=== PATIENT | female | born 1950 | race Caucasian/White ===

== ENCOUNTER 2023-12-04 10:02 | Outpatient (AMB) | payer MEDICARE, MEDICAID, SELFPAY ==
--- NOTE | 2023-12-04 10:03 | A.OFFVIS_ITS ---
Intake Vital Signs 12/04/23 10:06 Height 5 ft 3 in Weight 152 lb 8 oz BMI 27.0 BP 130/74 Blood Pressure Location Rt brachial Position Sitting Pulse 107 H Pulse Source Pulse Oximeter Pulse Oximetry (%) 95 Oxygen Delivery Method Room Air Intake Visit Reasons: prev pt/Confirmed Allergies Penicillins Allergy (Severe, Verified 12/04/23 10:07) throat swelling HPI HPI Comments History of Present Illness Details I had the privilege of seeing Alexsandra in follow-up of her mild CKD and hypertension. 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 She is due to have a next procedure for it done end of this month. She is not on any home oxygen. Her blood pressure had been at goal. Her serum creatinine has been stable. She denies any chest pain, proximal nocturnal dyspnea, orthopnea, pedal edema, orthostasis or urinary symptoms. She avoids nonsteroidal anti-inflammatories and tries to maintain good hydration. She follows up closely with her primary care phys kathryn. [facility] Medical History (Updated 12/04/23 @ 11:25 by Arvind Ball MD) Hypertensive chronic kidney disease with stage 1 through stage 4 chronic kidney disease, or unspecified chronic kidney disease Chronic kidney disease, stage 2 (mild) Surgical History History of throat surgery Family History Mother Pancreatic cancer Social History Household Members: None Housing: Apartment Alcohol intake: never Patient Tobacco Use Status: Former Tobacco user Current occupational status: retired Review of Systems Const All systems reviewed & are unremarkable except as noted in HPI and below Physical Exam Vital Signs: Last Vital Signs Pulse 107 H 12/04/23 10:06 BP 130/74 12/04/23 10:06 Pulse Ox 95 12/04/23 10:06 Oxygen Delivery Method Room Air 12/04/23 10:06 BMI result Body Mass Index 27.0 Const General: comfortable and no acute distress Orientation/consciousness: patient oriented x3 HEENT Head: Yes normocephalic Mouth: Normal oral and palatal mucosa present Eyes EOM: EOMs intact bilaterally Neck Neck: Yes supple Resp Auscultation: clear to auscultation bilaterally Cardio Jugular venous distension: no JVD Rate: regular rate GI Palpation (GI): Soft to palpation Auscultation: normal bowel sounds General: Yes no CVA tenderness Back/Spine/Pelvis Back: no CVA tenderness Skin General skin exam: no rashes or lesions noted Neuro General: patient oriented x3 and moves all extremities Extrem General: Yes no pedal edema Assessment & Plan Assessment & Plan (1) Hypertensive chronic kidney disease with stage 1 through stage 4 chronic kidney disease, or unspecified chronic kidney disease: Code(s): I12.9 - Hypertensive chronic kidney disease with stage 1 through stage 4 chronic kidney disease, or unspecified chronic kidney disease (2) Chronic kidney disease, stage 2 (mild): Code(s): N18.2 - Chronic kidney disease, stage 2 (mild) Plan Alexsandra has baseline mild CKD. Her renal functions are currently stable .Her blood pressure is currently well controlled. She had been on SMOOTH-inhibitor which was discontinued in the past due to her SMOOTH-inhibitor intolerance. She has no active vascular issues. She should be on a low-sodium diet. She avoids nonsteroidal anti-inflammatories. I did not make any medication changes today. Follow-up lab work ordered. All questions answered. Coding Level of Care Code Est Pt Level 3 (61410) Diagnoses Hypertensive chronic kidney disease with stage 1 through stage 4 chronic kidney disease, or unspecified chronic kidney disease I12.9 Chronic kidney disease, stage 2 (mild) N18.2
[2023-12-04 10:06] VITALS: BP 130/74; PULSE 107; O2SAT 95; BMI 27.0
== END 2023-12-04 10:31 | disposition home or self-care (01) ==
LOC: HO.HKAS 10:02
PROVIDERS: PCP Internal Medicine; Visit Provider Internal Medicine Nephrology
DX: I12.9 Hypertensive chronic kidney disease with stage 1 through stage 4 chronic kidney disease, or unspecified chronic kidney disease (principal); N18.2 Chronic kidney disease, stage 2 (mild)
CPT/HCPCS: 99213

== ENCOUNTER → 2023-12-04 10:02 | Outpatient (BNVA) | payer MEDICARE, MEDICAID, SELFPAY | PROVIDERS: PCP Internal Medicine; Visit Provider Internal Medicine Nephrology | DX: I12.9 Hypertensive chronic kidney disease with stage 1 through stage 4 chronic kidney disease, or unspecified chronic kidney disease (principal); N18.2 Chronic kidney disease, stage 2 (mild) | CPT/HCPCS: 99212 ==

== ENCOUNTER 2024-06-03 10:11 | Outpatient (AMB) | payer MEDICARE, MEDICAID, SELFPAY ==
--- NOTE | 2024-06-03 10:45 | HO.NEPHOV ---
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 She is due to have done twice a year. She is not on any home oxygen. Her blood pressure had been at goal. Her serum creatinine has been stable. She denies any chest pain, proximal nocturnal dyspnea, orthopnea, pedal edema, orthostasis or urinary symptoms. She avoids nonsteroidal anti-inflammatories and tries to maintain good hydration FOR[facility]LY [facility], [facility]1983 Medical History (Updated 12/04/23 @ 11:25 by Arvind Ball MD) Hypertensive chronic kidney disease with stage 1 through stage 4 chronic kidney disease, or unspecified chronic kidney disease Chronic kidney disease, stage 2 (mild) Surgical History History of throat surgery Family History Mother Pancreatic cancer Social History Household Members: None Housing: Apartment Alcohol intake: never Patient Tobacco Use Status: Former Tobacco user Current occupational status: retired Review of Systems Const All systems reviewed & are unremarkable except as noted in HPI and below Physical Exam Vital Signs: Last Vital Signs Pulse 78 06/03/24 10:46 BP 122/60 06/03/24 10:46 Pulse Ox 98 06/03/24 10:46 Oxygen Delivery Method Room Air 06/03/24 10:46 BMI result Body Mass Index 26.9 Const General: comfortable and no acute distress Orientation/consciousness: patient oriented x3 HEENT Head: Yes normocephalic Mouth: Normal oral and palatal mucosa present Eyes EOM: EOMs intact bilaterally Neck Neck: Yes supple Resp Auscultation: clear to auscultation bilaterally Cardio Jugular venous distension: no JVD Rate: regular rate GI Palpation (GI): Soft to palpation Auscultation: normal bowel sounds General: Yes no CVA tenderness Back/Spine/Pelvis Back: no CVA tenderness Skin General skin exam: no rashes or lesions noted Neuro General: patient oriented x3 and moves all extremities Extrem General: Yes no pedal edema Results Reviewed Nephrology Results: No Data to Display Assessment & Plan Assessment & Plan (1) Chronic kidney disease, stage 2 (mild): Code(s): N18.2 - Chronic kidney disease, stage 2 (mild) Category: Medical (2) Hypertensive chronic kidney disease with stage 1 through stage 4 chronic kidney disease, or unspecified chronic kidney disease: Code(s): I12.9 - Hypertensive chronic kidney disease with stage 1 through stage 4 chronic kidney disease, or unspecified chronic kidney disease Category: Medical Plan Alexsandra has baseline mild CKD. Her renal functions are currently stable .Her blood pressure is currently well controlled. She had been on SMOOTH-inhibitor which was discontinued in the past due to her SMOOTH-inhibitor intolerance. She has no active vascular issues. She should be on a low-sodium diet. She avoids nonsteroidal anti-inflammatories. I did not make any medication changes today. Follow-up lab work ordered. All questions answered. Orders: Orders Creatinine Today I12.9 - Hypertensive chronic kidney disease with stage 1 through stage 4 chronic kidney disease, or unspecified chronic kidney disease, N18.2 - Chronic kidney disease, stage 2 (mild) Blood Urea Nitrogen Today I12.9 - Hypertensive chronic kidney disease with stage 1 through stage 4 chronic kidney disease, or unspecified chronic kidney disease, N18.2 - Chronic kidney disease, stage 2 (mild) Electrolytes Today I12.9 - Hypertensive chronic kidney disease with stage 1 through stage 4 chronic kidney disease, or unspecified chronic kidney disease, N18.2 - Chronic kidney disease, stage 2 (mild) Coding Level of Care Code Est Pt Level 4 (90240) Diagnoses Chronic kidney disease, stage 2 (mild) N18.2 Hypertensive chronic kidney disease with stage 1 through stage 4 chronic kidney disease, or unspecified chronic kidney disease I12.9
[2024-06-03 10:46] VITALS: BP 122/60; PULSE 78; O2SAT 98; BMI 26.9
== END 2024-06-03 11:04 | disposition home or self-care (01) ==
PROVIDERS: PCP Internal Medicine; Visit Provider Internal Medicine Nephrology
DX: I12.9 Hypertensive chronic kidney disease with stage 1 through stage 4 chronic kidney disease, or unspecified chronic kidney disease (principal); N18.2 Chronic kidney disease, stage 2 (mild)
CPT/HCPCS: 99214

== ENCOUNTER → 2024-06-03 10:11 | Outpatient (BNVA) | payer MEDICARE, MEDICAID, SELFPAY | PROVIDERS: PCP Internal Medicine; Visit Provider Internal Medicine Nephrology | DX: I12.9 Hypertensive chronic kidney disease with stage 1 through stage 4 chronic kidney disease, or unspecified chronic kidney disease (principal); N18.2 Chronic kidney disease, stage 2 (mild) | CPT/HCPCS: 99212 ==

== ENCOUNTER 2025-01-01 09:12 | Outpatient (AMB) | payer MEDICARE, MEDICAID, SELFPAY ==
--- NOTE | 2025-01-01 09:25 | HO.NEPHOV ---
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 She is due to have done twice a year. She is not on any home oxygen. Her blood pressure had been at goal. Her serum creatinine has been stable. She denies any chest pain, proximal nocturnal dyspnea, orthopnea, pedal edema, orthostasis or urinary symptoms. She avoids nonsteroidal anti-inflammatories and tries to maintain good hydration [facility] Medical History (Updated 12/04/23 @ 11:25 by Arvind Ball MD) Hypertensive chronic kidney disease with stage 1 through stage 4 chronic kidney disease, or unspecified chronic kidney disease Chronic kidney disease, stage 2 (mild) Surgical History History of throat surgery Family History Mother Pancreatic cancer Social History Household Members: None Housing: Apartment Alcohol intake: never Patient Tobacco Use Status: Former Tobacco user Current occupational status: retired Review of Systems Const All systems reviewed & are unremarkable except as noted in HPI and below Physical Exam Vital Signs: Last Vital Signs Pulse 97 01/01/25 09:29 BP 130/60 01/01/25 09:29 Pulse Ox 96 01/01/25 09:29 Oxygen Delivery Method Room Air 01/01/25 09:29 BMI result Body Mass Index 27.0 Const General: comfortable and no acute distress Orientation/consciousness: patient oriented x3 HEENT Head: Yes normocephalic Mouth: Normal oral and palatal mucosa present Eyes EOM: EOMs intact bilaterally Neck Neck: Yes supple Resp Auscultation: clear to auscultation bilaterally Cardio Jugular venous distension: no JVD Rate: regular rate GI Palpation (GI): Soft to palpation Auscultation: normal bowel sounds General: Yes no CVA tenderness Back/Spine/Pelvis Back: no CVA tenderness Skin General skin exam: no rashes or lesions noted Neuro General: patient oriented x3 and moves all extremities Extrem General: Yes no pedal edema Results Reviewed Nephrology Results: No Data to Display Assessment & Plan Assessment & Plan (1) Chronic kidney disease, stage 2 (mild): Code(s): N18.2 - Chronic kidney disease, stage 2 (mild) Category: Medical (2) Hypertensive chronic kidney disease with stage 1 through stage 4 chronic kidney disease, or unspecified chronic kidney disease: Code(s): I12.9 - Hypertensive chronic kidney disease with stage 1 through stage 4 chronic kidney disease, or unspecified chronic kidney disease Category: Medical Plan Alexsandra has baseline mild CKD. Her renal functions are currently stable .Her blood pressure is currently well controlled. She had been on SMOOTH-inhibitor which was discontinued in the past due to her SMOOTH-inhibitor intolerance. She has no active vascular issues. She should be on a low-sodium diet. She avoids nonsteroidal anti-inflammatories. I did not make any medication changes today. Follow-up lab work ordered. All questions answered. Orders: Orders Creatinine 8 Months I12.9 - Hypertensive chronic kidney disease with stage 1 through stage 4 chronic kidney disease, or unspecified chronic kidney disease, N18.2 - Chronic kidney disease, stage 2 (mild) Blood Urea Nitrogen 8 Months I12.9 - Hypertensive chronic kidney disease with stage 1 through stage 4 chronic kidney disease, or unspecified chronic kidney disease, N18.2 - Chronic kidney disease, stage 2 (mild) Electrolytes 8 Months I12.9 - Hypertensive chronic kidney disease with stage 1 through stage 4 chronic kidney disease, or unspecified chronic kidney disease, N18.2 - Chronic kidney disease, stage 2 (mild) Protein Creatinine Ratio, Ur 8 Months I12.9 - Hypertensive chronic kidney disease with stage 1 through stage 4 chronic kidney disease, or unspecified chronic kidney disease, N18.2 - Chronic kidney disease, stage 2 (mild) Coding Level of Care Code Est Pt Level 4 (86896) Diagnoses Chronic kidney disease, stage 2 (mild) N18.2 Hypertensive chronic kidney disease with stage 1 through stage 4 chronic kidney disease, or unspecified chronic kidney disease I12.9
[2025-01-01 09:29] VITALS: BP 130/60; PULSE 97; O2SAT 96; BMI 27.0
--- OUTSIDE RECORDS SUMMARY | 2025-01-01 10:11 | XMS_ITS | Encounter Summary ---
Author Organization [facility] Address [address] [place] [address] Care Team Providers Care Gypsum Roofer Name Role Phone Lizzy Kendrick MD Primary Care Provider Reason for Visit * Auth/Cert Specialty Diagnoses / Procedures Referred By Helga smith Referred To Contact Diagnoses Dysphonia Laryngeal hyperkeratosis Dysphonia [R49.0] Laryngeal hyperkeratosis [J38.7] Procedures CA LARGSC EXC LEVY&/STRPG CORDS/EPIGL MCRSCP/TLSCP MICROLARYNGOSCOPY, WITH VYLO LASER PROCEDURE Referral ID Status Reason Start Date Expiration Date Visits Re quested Visits Authorized [id number] 1 1 Encounter Details Date Type Department Care Team (Late st Contact Info) Description 12/15/2024 10:05 AM EST - 12/15/2024 4:00 PM [facility] Hospital Encounter [facility] Room Services [address] [place] [id number] Enrique Taylor MD [address] [place] [address]- [place] [id number] Dysphonia; Laryngeal hyperkeratosis Discharge Disposition: Home or Self Care Social History Tobacco Use Types Packs/Day Years Used Date Smoking Tobacco: Former Cigarettes Q uit: 02/04/1981 Smokeless Tobacco: Never Alcohol Use Standard Drinks/Week Comments No 0 (1 standard drink = 0.6 oz pur e alcohol) Hunger Vital Sign Answer Date Recorded Within the past 12 months, y ou worried that your food would run out before you got the money to buy more. Never true 02/15/20 21 Within the past 12 months, t he food you bought just didn't last and you didn't have money to get more. Never true 02/14/2021 Comments No Sex and Gender Information Value Date Recorded Sex Assigned at Not on file Legal Sex Female 11:12 AM EST Gender Identity Not on file Sexual Orientation Not on file COVID-19 Exposure Response Date Recorded In the last 10 days, have yo u been in contact with someone who was confirmed or suspected to have Coronavirus/COVID-19? No / Unsure 11/04/2024 8:54 AM EST documented as of this encounter Last Filed Vital Signs Vital Sign Reading Time Taken Comments Blood Pressure 139/73 12/15/2024 3:45 PM EST Pulse 92 12/15/2024 3:45 PM EST Temperature 36.6 ??C (97.8 ??F) 12/15/2024 3:45 PM ES T Respiratory Rate 11 12/15/2024 3:45 PM EST Oxygen Saturation 94% 12/15/2024 3:45 PM EST Inhaled Oxygen Concentration - - Weight 68.6 kg (151 lb 4.8 oz) 12/15/2024 10:10 AM EST Height 160 cm (5' 3 ) 12/15/2024 10:10 AM EST Body Mass Index 26.8 12/15/2024 10:10 AM EST documented in this encounter Medications at Time of Discharge amLODIPine (NORVASC) 10 mg tablet Take 10 mg by mouth daily. cholecalciferol, vitamin D3, 50 mcg (2,000 unit) capsule Take 1 capsule by mouth daily. omeprazole (PriLOSEC) 40 mg capsuleIndication s:Laryngopharynge al reflux TAKE 1 CAPSULE BY MOUTH DAILY 30 TO 60 MINUTES BEFORE A MEAL ON AN EMPTY STOMACH 90 capsule 2 12/08/2024 documented as of this encounter H&P Notes * Enrique Taylor MD - 12/15/2024 11:43 AM EST H&P reviewed. The patient was examined and there are no changes to the H&P. Source Note - ONBASE, SCANNED IMAGE - 11/21/2024 4:03 PM EST documented in this encounter Miscellaneous Notes * Op Note - Enrique Taylor MD - 12/15/2024 12:26 PM EST Date of Procedure: 12/16/2024 Pre-operative Diagnosis: Laryngeal Hyperkeratosis Post-operative Diagnosis: Laryngeal Hyperkeratosis Procedures: Microlaryngoscopy with biopsy, KTP laser Surgeon: Enrique Taylor MD Assistants: Primitivo John MD Anesthesia: General via endotracheal tube Fluids: crystalloid EBL: 20cc Complications: none Findings: Papillomatous hyperplasia; Hyperkeratosis Specimen: 1 frozen section, 5 permanent sections Indications: 74 y.o. year old with dysphonia and recurrent laryngeal hyperkeratosis requiring multiple trips to OR for KTP laser excision of lesions. Patient was offered microlaryngoscopy with VYLO laser ablation of lesions. Patient elected to proceed and informed consent was obtained. Description of Procedure in Detail: The patient was brought to the operating room and laid supine on the operating room table. General anesthesia was induced, and a laser safe endotracheal tube was placed by the anesthesiology providerwithout difficulty. The head of the bed was turned 90 degrees and the patient was draped in the usual fashion. Time-Out was performed confirming patient, procedure and personnel involved. Next a tooth guard was placed to protect the upper dentition. A 4.0 Zeitel laryngoscope was introduced in an atraumatic fashion. The lateral pharyngeal banks were normal without any masses. The epiglottis was normal. Arytenoids and AE folds were normal bilaterally without any swelling or masses. The interarytenoid area was unremarkable. The b/l vocal cords had hyperkeratosis present and subglottis had hyperkeratosis. Using the microscope the lesions in question were visualized. The laryngoscope was suspended. 1:50,000 epinephrine was injected into lesion sites. Laser precautions were then started with all staff in room wearing appropriate eyewear and all exposed skin/eyes covered with wet towels. Using a combination of laser ablation, suction, spatula and platform the lesions were addressed. The first lesion in the subglottic on the left had a frozen spececimen sent with intra-op pathology significant for laryngeal hyperkeratosis. Attention was then directed to the other 4 sites including the b/l vocal folds, false cords and subglottic areas. Hemostasis was ensured. VYLO laser was then used to ablate the surface of the lesion using 10 W pulse with 15ms pulse duration and 2 pulses per second , a total of 502 Joules ws utilized. The laryngoscope was then taken off suspension and removed followed by the tooth guard. There was no damage to the patient's dentition. The patient was then turned over to anesthesia, after which he was extubated and transported to the PACU in stable condition. All counts were correct and Dr. Taylor was present for the entirety of the procedure. Primitivo John MD Date: 12/16/2024 Time: 5:45 PM * Brief Op Note - Primitivo John MD - 12/15/2024 12:26 PM EST MICROLARYNGOSCOPY, WITH VYLO LASER PROCEDURE (B) Procedure Note Procedure: MICROLARYNGOSCOPY, WITH VYLO LASER PROCEDURE CPT(R) Code: 55991 - CA LARGSC EXC LEVY&/STRPG CORDS/EPIGL MCRSCP/TLSCP Indications: Laryngeal Hyperkeratosis Pre-op Diagnosis * Dysphonia [R49.0] * Laryngeal hyperkeratosis [J38.7] Post-op Diagnosis * Dysphonia [R49.0] * Laryngeal hyperkeratosis [J38.7] Surgeon(s): Enrique Taylor MD Riccio, David, MD Anesthesia: General Staff: Elderly Sitter: Nayeli Magallon RN Laser Staff: Asia Sanders RN Scrub Person: Herminia Bennett RN; Martin Emerson RN Procedure Findings Right vocal cord with laryngeal hyperkeratosis, left subglottic hyperkeratosis, left inferior hyperkeratosis 502 Joules 1 frozen 5 permeant Estimated Blood Loss: 20 mL Specimens: Specimens ID Source Type Tests Collected By Collected At Frozen? 1 Larynx Tissue SURGICAL SPECIMEN EXAM Enrique Taylor MD 12/15/24 1236 Yes Description: Left posterior inferior vocal cord 2 Larynx Tissue SURGICAL SPECIMEN EXAM Enrique Taylor MD 12/15/24 1241 No Description: Left posterior inferior vocal cord 3 Larynx Tissue SURGICAL SPECIMEN EXAM Enrique Taylor MD 12/15/24 1245 No Description: Right true vocal cord 4 Larynx Tissue SURGICAL SPECIMEN EXAM Enrique Taylor MD 12/15/24 1319 No Description: Left false vocal cord 5 Larynx Tissue SURGICAL SPECIMEN EXAM Enrique Taylor MD 12/15/24 1338 No Description: posterior commissure 6 Larynx Tissue SURGICAL SPECIMEN EXAM Enrique Taylor MD 12/15/24 1358 No Description: Infraglottic Drains: * No LDAs found * Implants: * No implants in log * Complications: None; patient tolerated the procedure well. Disposition: PACU - hemodynamically stable. Condition: stable Siria Synoptic Reporting Requirements: N/A Attending Attestation: I was present and scrubbed for the entire procedure. Enrique Taylor MD Cosigned by Enrique Taylor MD at 12/16/2024 9:58 AM EST documented in this encounter Plan of Treatment Upcoming Encounters Date Type Department Care Team (Late st Contact Info) Description 03/10/2025 8:30 AM EDT Office Visit [facility] Department of Otolaryngology [address], [place] [id number] Enrique Taylor MD [address] [facility] [address] documented as of this encounter Procedures Procedure Name Priority Date/Time Associated Diagnosis Comments SURGICAL SPECIMEN EXAM Routine 12/15/2024 12:36 PM EST Dysphonia Laryngeal hyperkeratosis CA LARGSC EXC LEVY&/STRPG CORDS/EPIGL MCRSCP/TLSCP 12/15/2024 12:12 PM EST Dysphonia Laryngeal hyperkeratosis documented in this encounter Results * Surgical Specimen Exam (12/15/2024 12:36 PM EST) Case Report Surgical Pathology ?Case: [id number] ? Authorizing Provider: ??Enrique Taylor MD ?Collected: ? 12/15/2024 1236 ? Ordering Location: ? [facility] ? Received: ?12/15/2024 1245 ? Room Services ? Pathologist: ? Ruthy Aguilar MD ? Intraop: ? Ruthy Aguilar MD ? Specimens: ?? A) - Larynx, Left posterior inferior vocal cord ? B) - Larynx, Left posterior inferior vocal cord ? C) - Larynx, Right true vocal cord ? D) - Larynx, Left false vocal cord ? E) - Larynx, Posterior commissure ? F) - Larynx, Infraglottic ? 12/23/2024 4:04 PM EST [facility] Final Diagnosis A. Left posterior inferior vocal cord, biopsy (AFS): - Superficial fragment of squamous mucosa with papillomatous and atypical verrucous hyperplasia; hyper-/parakerat osis (see comment). B. Left posterior inferior vocal cord, biopsy: - Superficial fragments of squamous mucosa with papillomatous and atypical verrucous hyperplasia; marked hyper-/parakerat osis (see comment). C. Right true vocal cord, biopsy: - Superficial fragments of squamous mucosa with papillomatous and atypical verrucous hyperplasia, hyper-/parakerat osis (see comment). D. Left false vocal cord, biopsy: - Superficial fragment of squamous mucosa with atypical verrucous hyperplasia, and hyper-/parakerat osis; suspicious for recurrent verrucous carcinoma (see comment). E. 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 F. 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 12/23/2024 4:04 PM [facility] Comment A-F) The current biopsies with features of atypical verrucous hyperplasia to verrucous carcinoma show histologic similarities to the patient's prior Surgical Pathology material ([id number], [id number] and [id number]) with similar findings. 12/23/2024 4:04 PM [facility] Intraoperative Consultation AFS) Squamous mucosa with papillary hyperplasia, hyper-/parakerat osis. Dr. Aguilar notified the intraoperative diagnosis to Dr. Taylor in OR 11 on 12/15/2024 at 12:57 pm. 12/23/2024 4:04 PM [facility] Gross Description Prosector: CHRISTINA GOMEZ(ASCP). The specimen containers are labeled with the patient's name and date of . A. Received fresh (subsequently placed in formalin) for intraoperative consultation labeled left posterior inferior vocal cord is a 0.4 cm soft, red tissue. The specimen is submitted in toto for intraoperative frozen section diagnosis (See intraoperative consultation report), and the frozen section residue is entirely submitted labeled A1. B. Received in formalin labeled left posterior inferior vocal cord is a 0.3 cm aggregate of soft, pink tissue fragments, which is submitted in toto labeled B1. C. Received in formalin labeled right true vocal cord is a 0.5 cm aggregate of soft, red tissue fragments, which is submitted in toto labeled C1. D. Received in formalin labeled left false vocal cord are 2 portions of gates-white, rubbery tissue measuring 0.3 x 0.1 x 0.1 cm and 0.7 x 0.6 x 0.1 cm, which are submitted in toto labeled D1. E. Received in formalin labeled posterior commissure is a 1.0 cm aggregate of white, rubbery tissue fragments. The largest 2 fragments are bisected, and the specimen is entirely submitted labeled E1. F. Received in formalin labeled infraglottic yeah is a 1.5 x 1.5 x 0.5 cm aggregate of pink-white, rubbery tissue fragments. The largest fragment is bisected and the specimen is entirely submitted labeled F1. 12/23/2024 4:04 PM EST [facility] Embedded Images 4:04 PM EST [facility] Tissue Laryngeal structure / Unknown 12/15/2024 12:36 PM EST 12/15/2024 12:45 PM EST Tissue specimen (specimen) Laryngeal structure / Unknown 12/15/2024 12:41 PM EST 12/15/2024 3:51 PM EST Tissue specimen (specimen) Laryngeal structure / Unknown 12/15/2024 12:45 PM EST 12/15/2024 3:51 PM EST Tissue specimen (specimen) Laryngeal structure / Unknown 12/15/2024 1:19 PM EST 12/15/2024 3:51 PM EST Tissue specimen (specimen) Laryngeal structure / Unknown 12/15/2024 1:38 PM EST 12/15/2024 3:51 PM EST Tissue specimen (specimen) Laryngeal structure / Unknown 12/15/2024 1:58 PM EST 12/15/2024 3:51 PM EST us Enrique Taylor MD LAB PATHOLOGY (NO SOURCE) Final Result [facility] [address] [place] [address], [place] [phone] documented in this encounter Visit Diagnoses Diagnosis Dysphonia Laryngeal hyperkeratosis Other diseases of larynx documented in this encounter Admitting Diagnoses Diagnosis Dysphonia Laryngeal hyperkeratosis Other diseases of larynx documented in this encounter Administered Medications Inactive Administered Medications - up to 3 most recent administrations Medication Order MAR Action Action Date Dose Rate Site 0.9% sodium chloride flush 3 mL 3 mL, intravenous, As needed, Starting on Sun12/15/24 at 1014, Until Sun12/16/24 at 1055, line care, Pre-op acetaminophen (OFIRMEV) injection 1,000 mg 1,000 mg, intravenous, Once, 1 dose, On Sun12/15/24 at 1515, Recovery (only), Consult IV Medication Guidelines for administration information. For lower doses < 1000 mg, remove excess dose from vial and infuse desired dose. Given 12/15/2024 3:00 PM EST 1,000 mg fentaNYL (SUBLIMAZE) injection 50 mcg 50 mcg, intravenous, Every 5 min PRN, 2 doses, Starting on Sun12/15/24 at 1452, Until Sun12/15/24 at 1510, severe pain (8-10), Recovery (only), May give up to 2 doses. Maximum dose: 100 mcg in 20 minutes. High Alert Given 12/15/2024 3:10 PM EST 50 mcg Given 12/15/2024 3:05 PM EST 50 mcg haloperidol lactate (HALDOL) injection 0.5 mg 0.5 mg, intravenous, Once as needed, 1 dose, Starting on Sun12/15/24 at 1452, Until Sun12/16/24 at 1055, nausea, vomiting, post-operative nausea/vomiting persists 20 min after last dose of ondansetron, Recovery (only), Oral or IM is preferred. Immediate acting haloperidol lactate can be administered IV or IM although vial states ? For IM administration only? . lactated ringer's infusion 75 mL/hr, intravenous, Continuous, Starting on Sun12/15/24 at 1500, Recovery (only) lactated ringer's infusion 75 mL/hr, intravenous, Continuous, Starting on Sun12/15/24 at 1015, For 24 hours, Pre-op New Bag 12/15/2024 12:12 PM ES T naloxone (NARCAN) injection 0.04 mg 0.04 mg, intravenous, Administer over 0.25 Minutes, Every 2 min PRN, opioid reversal, Starting on Sun12/15/24 at 1452, Recovery (only), Partial Reversal (difficult to arouse, sedation score = or less than 1, RR < 8. May repeat every 2 minutes until sedation greater than 1 and RR greater than 8, notify provider stop all opioids). For 0.04 mg dose: mix 1 mL naloxone with 9 mL NS for 0.04 mg/mL. Dose of 0.04 mg is given over 15-30 seconds and flushed with 5 mL NS. naloxone (NARCAN) injection 0.4 mg 0.4 mg, intravenous, Administer over 0.25 Minutes, As needed, opioid reversal, Starting on Sun12/15/24 at 1452, For 1 dose, Recovery (only), Full Reversal (unresponsive, HR less than 30, RR less than 8, call code blue/MOLDER, notify provider, stop all opioids). ondansetron (ZOFRAN) injection 4 mg 4 mg, intravenous, Once as needed, 1 dose, Starting on Sun12/15/24 at 1452, Until Sun12/16/24 at 1055, nausea, vomiting, Recovery (only), For doses < 12 mg, dilute with 5 mL NS and administer IV push. oxyCODONE (ROXICODONE) immediate release tablet 5 mg 5 mg, oral, Once as needed, Starting on Sun12/15/24 at 1452, Until Sun12/16/24 at 1055, moderate pain (4-7), severe pain (8-10), Recovery (only) Given 12/15/2024 3:17 PM EST 5 mg documented in this encounter Active and Recently Administered Medications Times are shown in EST. Scheduled Medication Order 12/13/2024 12/14/2024 12/15/2024 acetaminophen (OFIRMEV) injection 1,000 mg (COMPLETED) 1,000 mg, intravenous, Once, 1 dose, On Sun12/15/24 at 1515, Recovery (only), Consult IV Medication Guidelines for administration information. For lower doses < 1000 mg, remove excess dose from vial and infuse desired dose. 1500 (Given - Provid er: Lindsay Anna RN) Continuous Medication Order 12/13/2024 12/14/2024 12/15/2024 lactated ringer's infusion 75 mL/hr, intravenous, Continuous, Starting on Sun12/15/24 at 1500, Recovery (only) 1615 (Stopped - Prov ider: Lindsay Anna RN) lactated ringer's infusion 75 mL/hr, intravenous, Continuous, Starting on Sun12/15/24 at 1015, For 24 hours, Pre-op 1212 (New Bag - Prov ider: Gladys Mitchell APRN)1438 (Anesthesia Volume Adjustment - Provider: Gladys Mitchell APRN) PRN Medication Order 12/13/2024 12/14/2024 12/15/2024 0.9% sodium chloride flush 3 mL(Linked Group 1) 3 mL, intravenous, As needed, Starting on Sun12/15/24 at 1014, Until Sun12/16/24 at 1055, line care, Pre-op EPINEPHrine (ADRENALIN) injection (CANCELED) As needed, Starting on Sun12/15/24 at 1248, Until Sun12/15/24 at 1506, Intra-op 1248 (Given - Provid er: Enrique Taylor MD - Comment: mixed with 12.5mL of 0.9% NaCl. used as needed throughout procedure) fentaNYL (SUBLIMAZE) injection 50 mcg (COMPLETED) 50 mcg, intravenous, Every 5 min PRN, 2 doses, Starting on Sun12/15/24 at 1452, Until Sun12/15/24 at 1510, severe pain (8-10), Recovery (only), May give up to 2 doses. Maximum dose: 100 mcg in 20 minutes. High Alert 1505 (Given - Provid er: Lindsay Anna RN)1510 (Given - Provider: Lindsay Anna RN) haloperidol lactate (HALDOL) injection 0.5 mg 0.5 mg, intravenous, Once as needed, 1 dose, Starting on Sun12/15/24 at 1452, Until Sun12/16/24 at 1055, nausea, vomiting, post-operative nausea/vomiting persists 20 min after last dose of ondansetron, Recovery (only), Oral or IM is preferred. Immediate acting haloperidol lactate can be administered IV or IM although vial states ? For IM administration only? . naloxone (NARCAN) injection 0.04 mg 0.04 mg, intravenous, Administer over 0.25 Minutes, Every 2 min PRN, opioid reversal, Starting on Sun12/15/24 at 1452, Recovery (only), Partial Reversal (difficult to arouse, sedation score = or less than 1, RR < 8. May repeat every 2 minutes until sedation greater than 1 and RR greater than 8, notify provider stop all opioids). For 0.04 mg dose: mix 1 mL naloxone with 9 mL NS for 0.04 mg/mL. Dose of 0.04 mg is given over 15-30 seconds and flushed with 5 mL NS. naloxone (NARCAN) injection 0.4 mg 0.4 mg, intravenous, Administer over 0.25 Minutes, As needed, opioid reversal, Starting on Sun12/15/24 at 1452, For 1 dose, Recovery (only), Full Reversal (unresponsive, HR less than 30, RR less than 8, call code blue/MOLDER, notify provider, stop all opioids). ondansetron (ZOFRAN) injection 4 mg 4 mg, intravenous, Once as needed, 1 dose, Starting on Sun12/15/24 at 1452, Until Sun12/16/24 at 1055, nausea, vomiting, Recovery (only), For doses < 12 mg, dilute with 5 mL NS and administer IV push. oxyCODONE (ROXICODONE) immediate release tablet 5 mg 5 mg, oral, Once as needed, Starting on Sun12/15/24 at 1452, Until Sun12/16/24 at 1055, moderate pain (4-7), severe pain (8-10), Recovery (only) 1517 (Given - Provid er: Lindsay Anna RN) oxymetazoline (AFRIN) 0.05 % nasal spray (CANCELED) As needed, Starting on Sun12/15/24 at 1249, Until Sun12/15/24 at 1506, Intra-op 1249 (Given - Provid er: Enrique Taylor MD - Comment: Applied as needed throughout procedure) Linked Groups Order Group 1: Insert peripheral IV (CANCELED) Once, On Sun12/15/24 at 1015, For 1 occurrence, Pre-op And Maintain IV access (CANCELED) Until discontinued, Starting on Sun12/15/24 at 1015, Until Specified, Pre-op And Maintain saline lock IV (CANCELED) Once, On Sun12/15/24 at 1015, For 1 occurrence, Pre-op And 0.9% sodium chloride flush 3 mLJump to med 3 mL, intravenous, As needed, Starting on 12/15/24 at 1014, Until Sun12/16/24 at 1055, line care, Pre-op documented in this encounter Care Teams Gypsum Roofer Relationship Specialty Start Date End Date Lizzy Kendrick MD [address] [place] [address] PCP - General Primary Care 10/30/18 documented as of this encounter
--- OUTSIDE RECORDS SUMMARY | 2025-01-01 10:11 | XMS_ITS ---
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 Normal [id number] [facility] ISTAT SAMPLE TYPE unknown Normal [id number] [facility] POCT CREATININE 1mg/dL Normal [id number] 0.6 - 1.2 C [facility] History of Medication Use Medication Directions Dispensed Refills Start Date End Date Stat cholecalciferol, vitamin D3, 50 mcg (2,000 unit) capsule Take 1 capsule by mouth daily. active omeprazole (PriLOSEC) 40 mg capsule TAKE ONE CAPSULE DAILY, 30-60 MINUTES BEFORE A MEAL, ON AN EMPTY STOMACH. 05/27/2021 03/26/2024 active amLODIPine (NORVASC) 10 mg tablet Take 10 mg by mouth daily. 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
--- OUTSIDE RECORDS SUMMARY | 2025-01-01 10:11 | XMS_ITS | Clinical Summary ---
Author Organization [facility] Address [address] [facility] [address] [place] [address] Phone Care Team Providers Care Stockroom Attendant Name Role Phone Lizzy Kendrick MD Primary Care Provider Allergies Active Allergy Reactions Criticality Noted Date Comments Penicillin V Other (see comments) 12/23/2020 Medications Cholecalciferol 50 MCG (1999) capsule Take 1 capsule by mouth 1 (one) time each day Active omeprazole (PriLOSEC) [address] capsule Take 1 capsule by mouth 1 (one) time each day 05/27/2021 Active amLODIPine (NORVASC) 10 MG tablet Take 1 tablet (10 mg total) by mouth 1 (one) time each day 90 tablet 4 08/27/2023 Active Active Problems Problem Noted Date Diagnosed Date 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 female with a history of verrucous carcinoma of the larynx returns today for a follow-up visit. Patient is over 2 wereks status post direct laryngoscopy KTP laser ablation of Verrucous lesions involving the bilateral true cords, posterior glottis, and false cords on 06/13/2021. During this direct laryngoscopy we concentrated on the right cord and the left posterior larynx. Video stroboscopy today reveals a nicely healing right vocal fold with no evidence of residual hyperkeratosis in the posterior glottis on the left side is markedly improved. She still has some hyperkeratosis on the left vocal fold and the false vocal fold on the left side. Overall she is healing well. Patient will follow up with me in 8 weeks for repeat videostroboscopy and reevaluation. Patient will follow up sooner if he develops any symptoms. Chronic kidney disease stage 2 12/23/2020 Hypertensive renal disease 12/23/2020 Resolved Problems Problem Noted Date Diagnosed Date Resolved Date Disorder of the larynx 12/17/201807/06 Overview (12/23/2020): Last Assessment & Plan: Patient with a history of laryngeal hyperkeratosis on the left and right true vocal cord. 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 Patient had a previous biopsy done in [place] which was consistent with parakeratosis hyperkeratosis. Videostroboscopy exam today revealed leukoplakic lesions extending the entire length of the left vocal fold extending into the anterior third of the right true vocal fold. There is some thick hyperkeratotic tissue along the medial edge of the right vocal fold in the middle third and then extending of the superior medial surface of the posterior aspect of the right vocal fold. She also has a bilobed lesion on the left vocal process. This is relatively unchanged from our last exam. Our plan will be to have the patient undergo direct laryngoscopy and biopsy and KTP laser ablation of the lesions. Today we spoke about the benefits of the procedure in addition to the alternatives. Risks including bleeding, infection, hoarseness and the need for possible further surgery were also discussed with the patient at length today. The procedure will require a week of voice rest. Patient understands this and is in agreement. Patient signed the consent form today and wishes to move forward with surgery. The patient will require a preoperative history and physical. Hopefully we can get this scheduled soon. Dysphonia 11/05/2018 07/06/2021 Overview (12/23/2020): Last Assessment & Plan: Patient with dysphonia. She has a history of bilateral true vocal fold leukoplakia. Her voice has been relatively stable. Videostroboscopy exam was performed today revealing Laryngopharyngeal reflux 11/05/201805/2021 Overview (12/23/2020): Last Assessment & Plan: The patient has evidence of a possible left-sided vocal process granuloma. She also has leukoplakia of both vocal folds. Her exam is consistent with reflux although she has no overt symptoms I believe this may be silent. Patient will modify her diet to avoid provocative foods. I will also put her on a proton pump inhibitor which she should take twice daily, 30-60 minutes before a meal, on an empty stomach. We will follow her up in 4-6 weeks. Immunizations Name Administration Dates Next Due Yenni SARS-COV-2 01/19/2021 Pneumococcal Conjugate 13-Valent 06/29/2016 Family History Relation Status Comments Father Mother Alive Social History Tobacco Use Types Packs/Day Years Used Date Smoking Tobacco: Former Smokeless Tobacco: Never Tobacco Cessation:Counseling Given: Not Answered Alcohol Use Standard Drinks/Week Comments Not Currently 0 (1 standard drink = 0.6 oz pur e alcohol) Comments Unknown Sex and Gender Information Value Date Recorded Sex Assigned at Not on file Legal Sex Female 5:01 PM EST Gender Identity Not on file Sexual Orientation Not on file Last Filed Vital Signs Vital Sign Reading Time Taken Comments Blood Pressure 130/60 11/20/2022 2:36 PM EST Pulse 93 11/20/2022 2:36 PM EST Temperature - - Respiratory Rate - - Oxygen Saturation 97% 07/07/2021 2:33 PM EDT Inhaled Oxygen Concentration - - Weight 68.3 kg (150 lb 9.6 oz) 11/20/2022 2:36 P M EST Height 160 cm (5' 3 ) 12/02/2019 12:01 PM EST Body Mass Index 26.68 12/02/2019 12:01 PM EST Plan of Treatment Health Maintenance Due Date Last Done Comments Breast Cancer Screening 1950 Colorectal Cancer Screening: Annual FOBT 1998 Colorectal Cancer Screening: Colonoscopy 1998 Colorectal Cancer Screening: Sigmoidoscopy 1998 Pneumococcal Vaccine: 65+ Ye ars (2 of 2 - PPSV23 or PCV20) 08/24/2016 06/29/2016 Influenza Vaccine (#1) 2024 Hepatitis B Vaccine Aged Out No longe r eligible based on patient's age to complete this topic Insurance [place] Care Teams Stockroom Attendant Relationship Specialty Start Date End Date Lizzy Kendrick MD [address] [place] [id number] PCP - General Internal Medicine 07/07/21
--- OUTSIDE RECORDS SUMMARY | 2025-01-01 10:11 | XMS_ITS | Encounter Summary ---
Author Organization [facility] Address [address] [place] [address] Care Team Providers Care Operating Room Aide Name Role Phone Lizzy Kendrick MD Primary Care Provider Reason for Visit * Auth/Cert Specialty Diagnoses / Procedures Referred By Helga t Referred To Contact Diagnoses Dysphonia Laryngeal hyperkeratosis Dysphonia [R49.0] Laryngeal hyperkeratosis [J38.7] Procedures MD LARGSC EXC LEVY&/STRPG CORDS/EPIGL MCRSCP/TLSCP MICROLARYNGOSCOPY, WITH VYLO LASER PROCEDURE Referral ID Status Reason Start Date Expiration Date Visits Re quested Visits Authorized [id number] 1 1 Encounter Details Date Type Department Care Team (Late st Contact Info) Description 12/15/2024 11:30 AM EST - 12/15/2024 1:00 PM EST Surgery [facility] Operating Room Services [address] [place] [id number] Enrique Taylor MD [address] [place] [address] [id number] MICROLARYNGOSCOPY, WITH VYLO LASER PROCEDURE [65677 (CPT??)] Social History Tobacco Use Types Packs/Day Years [...] Sign Reading Time Taken Comments Blood Pressure 161/92 12/15/2024 10:10 AM EST Pulse 102 12/15/2024 10:10 AM EST Temperature 36.1 ??C (97 ??F) 12/15/2024 10:10 AM EST Respiratory Rate 18 12/15/2024 10:10 AM EST Oxygen Saturation 95% 12/15/2024 10:10 AM EST Inhaled Oxygen Concentration - - Weight [...] MICROLARYNGOSCOPY, WITH VYLO LASER PROCEDURE CPT(R) Code: 22070 - MD LARGSC EXC LEVY&/STRPG CORDS/EPIGL MCRSCP/TLSCP Indications: Laryngeal Hyperkeratosis Pre-op Diagnosis * Dysphonia [R49.0] * Laryngeal hyperkeratosis [J38.7] Post-op Diagnosis * Dysphonia [R49.0] * Laryngeal hyperkeratosis [J38.7] Surgeon(s): Enrique Taylor MD Riccio, David, MD Anesthesia: General Staff: Flower Arranger: Nayeli Magallon RN Laser Staff: Asia Sanders [...] Description 03/10/2025 8:30 AM EDT Office Visit [facility] Department of Otolaryngology [address] [place], [place] [id number] Enrique Taylor MD [address] [facility] [address] documented as of this encounter Procedures Procedure Name Priority Date/Time Associated Diagnosis Comments SURGICAL SPECIMEN EXAM Routine 12/15/2024 12:36 PM EST Dysphonia Laryngeal hyperkeratosis MD LARGSC EXC LEVY&/STRPG CORDS/EPIGL MCRSCP/TLSCP 12/15/2024 12:12 PM EST Dysphonia Laryngeal hyperkeratosis documented in this encounter Results * Surgical Specimen Exam (12/15/2024 12:36 PM EST) Case Report Surgical Pathology ?Case: [id number] ? Authorizing Provider: ??Enrique Taylor MD ?Collected: ? 12/15/2024 1236 ? Ordering Location: ? [facility] Operating ? Received: ?12/15/2024 1245 ? Room [...] Larynx, Infraglottic ? 12/23/2024 4:04 PM EST [facility] Final Diagnosis A. Left posterior inferior [...] carcinoma; recurrent (see comment). 12/23/2024 4:04 PM [facility] Comment A-F) The current biopsies with features of atypical verrucous hyperplasia to verrucous carcinoma show histologic similarities to the patient's prior Surgical Pathology material ([id number], [id number] and [id number]) with similar findings. 12/23/2024 4:04 PM [facility] Intraoperative Consultation AFS) Squamous mucosa with papillary hyperplasia, hyper-/parakerat osis. Dr. Aguilar notified the intraoperative diagnosis to Dr. Taylor in OR 11 on 12/15/2024 at 12:57 pm. 12/23/2024 4:04 PM [facility] Gross Description Prosector: CHRISTINA GOMEZ(ASCP). [...] submitted labeled F1. 12/23/2024 4:04 PM EST [facility] Embedded Images 4:04 PM EST [facility] Tissue Laryngeal structure / Unknown 12/15/2024 [...] MD LAB PATHOLOGY (NO SOURCE) Final Result [facility] [address] [place] [address], [place] [phone] documented in this encounter Visit Diagnoses Diagnosis Dysphonia Laryngeal hyperkeratosis Other diseases of larynx Dysphonia Laryngeal hyperkeratosis Other diseases of larynx [...] Given 12/15/2024 3:00 PM EST 1,000 mg EPINEPHrine (ADRENALIN) injection As needed, Starting on Sun12/15/24 at 1248, Until Sun12/15/24 at 1506, Intra-op Given 12/15/2024 12:48 PM EST 0.25 mL Surgical Site fentaNYL (SUBLIMAZE) injection 50 mcg 50 mcg, [...] hours, Pre-op New Bag 12/15/2024 12:12 PM EST naloxone (NARCAN) injection 0.04 mg 0.04 mg, [...] 30, RR less than 8, call code blue/[employer] JOB TITLES, notify provider, stop all opioids). ondansetron (ZOFRAN) [...] Given 12/15/2024 3:17 PM EST 5 mg oxymetazoline (AFRIN) 0.05 % nasal spray As needed, Starting on Sun12/15/24 at 1249, Until Sun12/15/24 at 1506, Intra-op Given 12/15/2024 12:49 PM EST 15 mL Surgical Site documented in this encounter Active and Recently [...] 30, RR less than 8, call code blue/[employer] JOB TITLES, notify provider, stop all opioids). ondansetron (ZOFRAN) [...] Pre-op documented in this encounter Care Teams Operating Room Aide Relationship Specialty Start Date End Date Lizzy Kendrick MD [address] [place] [id number] PCP - General Primary Care 10/30/18 documented as of this encounter
--- OUTSIDE RECORDS SUMMARY | 2025-01-01 10:11 | XMS_ITS | Clinical Summary ---
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 Active cholecalcifero l, vitamin D3, 50 mcg (2,000 unit) capsule Take 1 capsule by mouth daily. Active omeprazole (PriLOSEC) 40 mg capsuleIndicat ions:Laryngoph aryngeal reflux TAKE 1 CAPSULE BY MOUTH DAILY 30 TO 60 MINUTES BEFORE A MEAL ON AN EMPTY STOMACH 90 capsule 2 5 Active omeprazole (PriLOSEC) 40 mg capsuleIndicat ions:Laryngoph aryngeal reflux TAKE ONE CAPSULE DAILY, 30-60 MINUTES BEFORE A MEAL, ON AN EMPTY STOMACH. 90 capsule 2 4 12/08/19 25 Discontinued Active Problems Problem Noted Date Diagnosed Date Allergic rhinitis 01/29/2024 Assessment & Plan (01/29/2024 8:41 AM EDT): Patient does have postnasal drip she is coughing up significant amount of mucus. This could be from some degree of allergic rhinitis. I will put her on Flonase 2 puffs each nostril once a day. She will insert the nozzle horizontally and deflected towards the ear on each side and apply the 2 puffs once daily. 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 Patient will follow- up with me in 10 weeks time. Assessment & Plan (11/04/2024 9:26 AM EST): Patient with a history of verrucous like lesions of the larynx she is status post multiple direct laryngoscopy and KTP laser ablations. Assessment & Plan (10/02/2024 11:34 AM EST): Patient with a previous diagnosis of verrucous changes on some of her biopsies. She now has a fullness of the right false vocal fold which is not hyperkeratotic. We will get this biopsy. Assessment & Plan (08/26/2024 9:23 AM EDT): Patient with a history of verrucous carcinoma in the past. Her most recent biopsies have not shown any evidence of dysplasia. Assessment & Plan (01/29/2024 8:39 AM EDT): Patient with a history of verrucous carcinoma initially. Her subsequent direct laryngoscopy is have been negative for verrucous carcinoma and have been benign hyperkeratosis parakeratosis. Assessment & Plan (09/14/2023 8:25 AM EST): Patient has had changes consistent with verrucous carcinoma in the past. Her most recent biopsy did not show these changes. Assessment & Plan (06/14/2023 8:23 AM EDT): Patient with findings consistent with verrucous carcinoma in the past her recent biopsies are not consistent with verrucous carcinoma. Assessment & Plan (03/22/2023 8:23 AM EDT): Patient with verrucous carcinoma of the larynx. She had her last procedure 6 months ago and wishes to have additional procedures to remove the lesions to improve her vocal quality. We will get her scheduled. Patient understands the risks and benefits of the procedure. Assessment & Plan (09/29/2021 12:02 PM EST): Patient status post direct laryngoscopy and KTP laser ablation of laryngeal hyperkeratosis that occurred 2 weeks ago. She is doing well appears to be healing nicely we will have her come back and see me in approximately 10 weeks time. Assessment & Plan (09/01/2021 8:27 AM EDT): Patient with a history of verrucous carcinoma she is status post her last direct laryngoscopy in May of this year. She appears to have recurrence especially on the midportion of the left vocal fold the left false vocal fold and the posterior aspect of the left vocal fold. There is some very mild recurrence in the anterior portion of the right true vocal fold. Our plan will be to take her back to the operating room for a follow-up KTP laser ablation of these lesions. Patient is in agreement with this plan she understands the risks and benefits of the procedure. She wishes to move forward. Assessment & Plan (07/01/2021 11:53 AM EDT): 70 y.o. female with a history of [...] up sooner if he develops any symptoms. 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 Patient is over 3 months status post direct laryngoscopy and KTP laser ablation of left-sided hyperkeratotic tissue ion January 2021. Pathology was consistent with a verrucous carcinoma. Flexible videostrobe exam was performed today revealing some increased thickening of the hyperkeratosis of the right vocal fold and the mucosa just anterior to the left arytenoid. She also has some patchy hyperkeratosis of the false vocal folds posteriorly on each side and some regrowth of the left true vocal fold hyperkeratosis. Our plan will be to bring the patient back to the operating room for a direct laryngoscopy and KTP laser ablation of the verrucous carcinoma. Risks including bleeding, infection, hoarseness and the need for possible further surgery were also discussed with the patient at length today0. Patient understands this and is in agreement. Patient signed the consent form today and wishes to move forward with surgery. The patient will require a preoperative history and physical. Hopefully we can get this scheduled soon. I recommend that the patient inhale steam, hydrate markedly with 64 ounces of water per day, and take Guaifenesin 400-600 mg twice a day as needed to maintain healthy mucosa and break up any thick mucus. 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 Patient is approximately 6 weeks status post direct laryngoscopy and KTP laser ablation of left-sided hyperkeratotic tissue. Pathology was consistent with a verrucous carcinoma. Patient is doing better she notices that her voice quality is returning. Of note patient did have an accident and did fracture her thumb and fracture her shoulder and comes in with the arm restrained today. On video stroboscopy patient's left vocal fold has good mucosal position with a wave motion present although it still quite erythematous. The interarytenoid area is still healing and the right vocal fold still has some verrucous changes. Our plan will be to bring her back for completion laser procedure on the right vocal cord. We may need to touch up the posterior interarytenoid area in the left false vocal fold as well. I will see her back in 4 weeks time to allow her to heal a bit more prior to booking her for the next procedure. Assessment & Plan (02/28/2021 11:15 AM EDT): 70 y.o. female with a history of dysphonia and neoplasms of the larynx returns today for a follow-up visit. Patient is currently 2 week s/p direct laryngoscopy KTP laser ablation and biopsy of neoplasms of the larynx on 02/14/2021. Biopsy confirmed Verrucous carcinoma. She is doing well post-op. She had discomfort postop but that has resolved. Her breathing is improved by the daughter's report. Flexible videostrobe exam was performed today revealing that she still has significant edema and erythema post excision of the squamous mucosa. Patient's voice is just a whisper. I recommend that the patient inhale steam, hydrate markedly with 64 ounces of water per day, and take Guaifenesin 400-600 mg twice a day as needed to maintain healthy mucosa and break up any thick mucus. Patient will follow up with me in 3 weeks for repeat videostroboscopy and reevaluation. Patient will follow up sooner if he develops any symptoms. Laryngeal hyperkeratosis 12/17/2018 Assessment & Plan (12/30/2024 9:25 AM EST): Patient with laryngeal hyperkeratosis some of which was consistent with verrucous carcinoma. She is status post direct laryngoscopy and bluelight laser excision of the lesions. She will follow-up with us in 10 weeks time. Assessment & Plan (11/04/2024 9:26 AM EST): Patient with recurrent laryngeal hyperkeratosis we will get her scheduled for a revision direct laryngoscopy with biopsy and KTP laser ablation. Patient understands the risks and benefits of this fully as she has had multiple procedures and she agrees with the plan. Assessment & Plan (10/02/2024 11:33 AM EST): Patient with history of laryngeal hyperkeratosis. She has had some verrucous changes noted on previous biopsies. Our plan will be to take her to the operating room to biopsy this under general anesthesia. Patient has had bacterial overgrowth in some of her biopsy so I will put her on an antibiotic to see if this helps the fullness that were seeing on the right false vocal fold area. Assessment & Plan (08/26/2024 9:23 AM EDT): Patient with a history of verrucous laryngeal hyperkeratosis. No evidence of any dysplasia. Assessment & Plan (07/15/2024 9:01 AM EDT): Patient with laryngeal hyperkeratosis with some verrucous changes. She is several weeks status post her last KTP laser ablation. She appears to have some recurrence on the right interarytenoid area. The right true vocal fold appears slightly edematous. She did have some bacteria noted on the pathology so we will put her on doxycycline. 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 She has no evidence of dysplasia. Assessment & Plan (11/27/2023 8:30 AM EST): Patient with a history of hyperkeratosis and dysplasia she also had a history of verrucous hyperplasia. Patient status post her last direct laryngoscopy biopsy and KTP laser ablation in April 2023. She is starting to get increased symptoms once again and there appears to be some growth below the left arytenoid. Our plan will be to take her back to the operating room for direct laryngoscopy biopsy and KTP laser and micro debridement removal of these lesions. Assessment & Plan (09/14/2023 8:25 AM EST): Patient with a history of laryngeal hyperkeratosis of the larynx status post several direct laryngoscopy's and KTP laser ablations. She is s/p a microlaryngoscopy with biopsy, KTP laser on 05/14/2023. Pathology findings were consistent with squamous hyperplasia with hyperkeratosis there was no dysplasia noted. Patient has had diagnosis more consistent with verrucous carcinoma in the past as well. She is doing well postop she does have some recurrence beginning greater on the left side she still has good wave motion of the left vocal fold. I will have her come back and see me in a few months we will probably get another procedure scheduled for the spring. Assessment & Plan (06/14/2023 8:23 AM EDT): Patient with a history of laryngeal hyperkeratosis of the larynx status post several direct laryngoscopy's and KTP laser ablations. She is now about 1 month s/p a microlaryngoscopy with biopsy, KTP laser on 05/14/2023. Pathology findings were consistent with squamous hyperplasia with hyperkeratosis. She is doing very well postop we will see her back again in 3 months time. Assessment & Plan (03/22/2023 8:22 AM EDT): Patient with a history of laryngeal hyperkeratosis of the larynx status post several direct laryngoscopy's and KTP laser ablations. Her last procedure was on 10/16/2022. Pathology did reveal verrucous changes with some evidence of verrucous carcinoma as well. Patient did well she is thought her voice lasted longer than her previous procedures. On our exam today she does have recurrence on the right vocal fold and the left false vocal fold and into the interarytenoid area. Patient wishes to have this removed so we will get her scheduled for direct laryngoscopy and KTP laser ablation of the laryngeal lesions. Assessment & Plan (12/19/2022 8:22 AM EST): Patient with a history of laryngeal hyperkeratosis of the larynx status post several direct laryngoscopy's and KTP laser ablations. Her last procedure was on 10/16/2022. Pathology was consistent with verrucous hyperplasia. She did have 1 biopsy in the posterior interarytenoid area consistent with verrucous carcinoma. Patient is doing well she is healed nicely I will have her follow-up with me in 3 months time. Assessment & Plan (09/01/2022 8:27 AM EDT): Patient with a history of laryngeal hyperkeratosis of the larynx status post several direct laryngoscopy's and KTP laser ablations. Her last procedure was in March of this year. She was doing well but recently started to notice increased hoarseness and videostroboscopy exam reveals increased hyperkeratosis of the right vocal fold. Our plan will be to take her to the operating room for direct laryngoscopy and KTP laser ablation of hyperkeratosis on both the right and left side of the larynx. Patient is in agreement with this plan. Assessment & Plan (06/23/2022 8:38 AM EDT): Patient with a history of laryngeal hyperkeratosis. Her last procedure was done in March 2022. She is healing nicely her voice quality is improved. Pathology did not reveal any dysplasia. I will have the patient come back to see me in about 4 months time. She will continue on her reflux medication. She will come back sooner should she have any voice issues. Assessment & Plan (05/02/2022 9:00 AM EDT): Patient with a history of laryngeal hyperkeratosis biopsies from her last procedure just 2 weeks ago were benign. Patient still has significant hoarseness and still has significant eschar over both true vocal folds. I want her to hydrate markedly use steam inhalation when she is in the shower and voice should improve over the next several weeks. I like to see her back in 6 weeks time she will come back any sooner should she have any additional difficulties. Assessment & Plan (03/09/2022 9:22 AM EDT): Patient with a history of laryngeal hyperkeratosis. She actually had some findings initially consistent with verrucous carcinoma. She has been doing very well she had her last procedure in August we will retreated the left side and much of this appears to be doing quite well although she is getting some recurrence in the interarytenoid area. She does have some recurring hyperkeratosis on the anterior portion of the right vocal fold. This is impeding her voice to a significant degree as I cannot get a good wave motion of the anterior portion of her glottis. Because of this we will get her scheduled for another direct laryngoscopy biopsy and KTP laser ablation of the hyperkeratosis. Patient is in agreement with this plan. Assessment & Plan (12/08/2021 8:24 AM EST): Patient with a history of laryngeal hyperkeratosis. Her last procedure done in August 2021 revealed hyperkeratotic papilloma and some focal dyskeratosis and chronic inflammation was no evidence of any dysplasia or malignancy. Patient is doing well her voice quality is improved. Videostroboscopy exam today does reveal that the left side is healing quite nicely there may be some mild hyperkeratotic changes starting to recur on the left false vocal fold posteriorly. She does have some hyperkeratotic tissue on the right vocal fold just adjacent to the anterior commissure and posterior superior surface of the right cord. This is affecting wave motion on the right side to a slight degree. Our plan will be to have the patient come back and see us in about 8 weeks time we may need to reschedule another procedure later this spring to touch of the right cord a bit more. Patient is in agreement with this plan. Assessment & Plan (02/04/2021 11:36 AM EDT): Patient with a history of leukoplakia of the larynx. Patient had a previous biopsy done in [place] 05/22/18 which was consistent with parakeratosis hyperkeratosis. Patient was scheduled for direct laryngoscopy and KTP P ablation in 2018 but she canceled the procedure. Patient now presents with significant worsening of the hyperkeratosis involving the subglottis bilaterally the left false vocal folds in both true vocal folds. There is a small amount on the right posterior false vocal fold as well. The airway is adequate but certainly not normal. Patient does have some difficulty with both voicing and breathing from time to time. She is without stridor at rest. Our plan will be to get her scheduled for direct laryngoscopy biopsy and KTP laser reduction of this hyperkeratotic tissue. Patient may need to have transtracheal jet ventilation to secure the airway. We will get her scheduled as soon as possible. Today we spoke about the benefits of the procedure in addition to the alternatives. Risks including bleeding, infection, hoarseness and the need for possible further surgery were also discussed with the patient at length today. We also talked about possible difficulty securing the airway and the very unlikely possibility of tracheostomy. Patient understands this and is in agreement. Patient signed the consent form today and wishes to move forward with surgery. The patient will require a preoperative history and physical. Hopefully we can get this scheduled soon. Assessment & Plan (12/17/2018 10:36 AM EST): Patient with a history of laryngeal hyperkeratosis on the left and right true vocal cord. She does have a history of leukoplakia of the larynx. Leukoplakia of larynx 12/17/2018 Assessment & Plan (04/10/2024 9:26 AM EDT): Patient with a history of leukoplakia of the larynx. Her initial biopsy 2 years ago was consistent with verrucous carcinoma but her subsequent procedures have shown no evidence of dysplasia. Patient is having recurrent specially on the undersurface of the left vocal fold we will get her scheduled for direct laryngoscopy and biopsy with KTP laser ablation of these lesions. Will try to get this scheduled for May. Patient understands the risks and benefits of the procedures and wishes to move forward. Assessment & Plan (12/17/2018 10:43 AM EST): Patient with a history of leukoplakia of the larynx. Patient had a previous biopsy done in [place] which was consistent with parakeratosis hyperkeratosis. Videostroboscopy [...] can get this scheduled soon. Dysphonia 11/05/2018 Assessment & Plan (12/30/2024 9:24 AM EST): Patient's voice quality is slightly raspy but it is stable. She recovered very nicely from her procedure. 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 Patient has had verrucous carcinoma diagnosed in the past. She has had multiple direct laryngoscopy's and KTP laser ablation of these lesions. She had a recent biopsy of swelling of the right false vocal fold which revealed only low-grade dysplasia. Patient is having increased difficulty with her voice because of this we will get her scheduled for another direct laryngoscopy and KTP laser ablation of laryngeal hyperkeratosis. 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 She did have some verrucous changes to some of the tissues and previous biopsies. Over the last 8 weeks she has had some erythema and swelling in the area of the right false vocal fold. This is now obscuring her vision of the right true vocal fold. I am concerned that this could be a neoplastic process and I will get her scheduled for direct laryngoscopy and biopsy in the operating room. I did offer her an option of biopsying this in the office but she would rather undergo general anesthesia. We did get a CT scan which does show a fullness in that area but I do not have an official read as of yet. Will contact radiology for this read. I will try to get the patient on the schedule over the next 2 weeks to get this biopsy. In the meantime she has had some bacterial overgrowth in some of her biopsies so I will put her on an antibiotic to see if this reduces the erythema and inflammation of the right false vocal fold area. Assessment & Plan (08/26/2024 9:22 AM EDT): Patient with dysphonia secondary to recurrent bouts of hyperkeratosis. Biopsies have been benign to date. Patient had verrucous hyperkeratosis. She also had some bacterial colonization and was treated with antibiotics with good result. Patient's voice is slightly harsh. I see slight addition to the hyperkeratosis on the superior surface of the right vocal fold. She is got some fullness in the false vocal folds as well I am going to get a CT scan of her neck just to rule out any hidden lesions. I see no need for any further surgical intervention at this time. Assessment & Plan (07/15/2024 9:01 AM EDT): Patient with a history of recurring verrucous hyperplasia of the larynx. She status post multiple direct laryngoscopy's and KTP laser ablation. Her last was several weeks ago. The left posterior false vocal fold area appears to be healing nicely however she appears to have some recurrence on the medial edge of the right arytenoid. The right true vocal fold appears to be developing some edema. Her pathology did show some bacterial colonization's although we did not have any breakdown as to the species. Patient is allergic to penicillin but I will put her on doxycycline to see if this can help control some of the recurrence. I will see her back in 6 weeks time. Assessment & Plan (04/10/2024 9:25 AM EDT): Patient's voice quality is slightly raspy but overall she is easily understood. Her voice quality has maintained itself since our last procedures. Patient does have some recurrence on the undersurface of the left vocal fold. We will get this removed in the operating room this summer. Will do this with KTP laser ablation. Assessment & Plan (01/29/2024 8:39 AM EDT): Patient's voice quality is slightly rough after most recent direct laryngoscopy and KTP laser treatment with removal of hyperkeratotic tissue. Pathology was benign for any dysplasia. Patient's voice is slightly rough but is recovering slowly. She does have some dry mucosa with some thicker mucus. I do recommend she try to drink 64 ounces of water per day. I want her to avoid all caffeine if possible so I want her to switch to herbal tea. She can hydrate herself and use steam inhalation when she is in the shower as well. I do recommend she take guaifenesin this is the active ingredient in plain Mucinex but is also available and she performed such as chest congestion which is available at [facility]. Patient should take 400 to 600 mg twice a day. Assessment & Plan (11/27/2023 8:28 AM EST): Patient's voice quality is getting where she also has having some trouble clearing mucus from time to time. There appears to be increased size of the hyperkeratotic region just below the left arytenoid. Her airway is adequate but this may be creating some difficulty with mucus clearance. Our plan will be to take her back to the operating room for direct laryngoscopy biopsy and KTP laser ablation of these lesions. 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 Her last procedure in April did not reveal any evidence of dysplasia. She has had biopsies consistent with verrucous carcinoma in the past. Patient is 4 months status post her last procedure she is getting recurrence mostly on the left side including the left ventricle. I would like to have her come back and see me in the new year and we will see how she does we will probably have to get her scheduled for another procedure in the near future. Assessment & Plan (06/14/2023 8:22 AM EDT): Patient's voice quality is markedly improved. She still has some roughness to her voice. Assessment & Plan (03/22/2023 8:23 AM EDT): Patient with dysphonia secondary to recurrence of her verrucous carcinoma and verrucous changes to the vocal folds and the supraglottic larynx. Assessment & Plan (12/19/2022 8:22 AM EST): Patient's voice quality is improved but there is still some hoarseness secondary to diminished wave motion of the right vocal fold. Assessment & Plan (09/01/2022 8:28 AM EDT): Patient's voice quality with increased raspiness secondary to increase in the laryngeal hyperkeratosis. Our plan will be to take her back to the operating room for another KTP laser procedure. Assessment & Plan (06/23/2022 8:39 AM EDT): Patient's voice has improved. She has a good wave motion of the left vocal fold the right side is still stiff so she still has some underlying hoarseness. I will see her in 4 months or sooner if her symptoms worsen significantly. Assessment & Plan (05/02/2022 9:00 AM EDT): Patient's voice is still quite hoarse postop. I will have her follow-up with me in another 6 weeks time. Everything appears to be healing nicely but she still has some eschar over both vocal folds. 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 We will get her scheduled for direct laryngoscopy biopsy and KTP laser ablation of the hyperkeratotic tissue. Assessment & Plan (12/08/2021 8:24 AM EST): Patient's voice quality is improved. She does have some hoarseness this is secondary to the hyperkeratosis we see in the anterior portion of the right vocal fold. I will see her back in about 8 weeks time. We can consider another procedure at that time. Assessment & Plan (09/29/2021 12:03 PM EST): 70 y.o. female with a history of laryngeal hyperkeratosis returns today for a follow-up visit. She is 2 weeks status post KTP laser ablation. 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 Pathology after this procedure was secondary to hyperkeratotic papilloma there was some focal dyskeratosis noted and focal chronic inflammation noted there was no evidence of high-grade dysplasia or malignancy. Flexible videostrobe exam was performed today revealing the patient is healing well. She still has some edema both true vocal folds and there is some eschar on the posterior aspect of the left false vocal fold and interarytenoid area. The right cord appears clear of any residual or recurrent hyperkeratosis. Patient will follow up with me in about 10 weeks time. Assessment & Plan (09/01/2021 8:27 AM EDT): Patient is voice quality is slightly raspy. Assessment & Plan (07/01/2021 11:54 AM EDT): Patient's voice quality is stable. Assessment & Plan (05/27/2021 9:09 AM EDT): Patient's voice is somewhat gravelly secondary to the recurrence of the verrucous carcinoma. Assessment & Plan (03/29/2021 8:24 AM EDT): Patient's voice quality is improving. She has less strain. The left vocal fold has a decent wave motion. Assessment & Plan (02/04/2021 11:36 AM EDT): Patient with significant dysphonia secondary to hyper keratotic lesion of the supraglottic and glottic larynx. Does extend into the subglottic to a small degree. Assessment & Plan (12/17/2018 10:29 AM EST): Patient with dysphonia. She has a history of bilateral true vocal fold leukoplakia. Her voice has been relatively stable. Videostroboscopy exam was performed today revealing Assessment & Plan (11/05/2018 10:54 AM EST): Patient with dysphonia. She has a history of bilateral true vocal fold leukoplakia. She is s/p direct laryngoscopy biopsy of a suspicious lesions of the left true vocal fold and the anterior comissure on 05/22/18 which was benign. 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 Patient did have some hoarseness following the procedure but her voice improved slightly thereafter. She starting to notice some hoarseness now.. Videostroboscopy was performed today revealing some diffuse hyperkeratosis over the entire length of the left vocal fold extending into the anterior third of the right vocal fold. This appears relatively soft and actually does have a wave motion traveling over it. She also has what appears to be hyperkeratosis or perhaps a granuloma on the undersurface of the left vocal process. This is creating a bilobed appearance to the lesion on the left posterior cord. She also has some thickening of the right vocal process. I do see some diffuse hyperkeratotic changes in the area just above the left vocal process on the posterior aspect of the left false vocal fold. Biopsy initially was negative for any malignancy or dysplasia. I believe reflux may be contributing to this lesion so I will put her on a proton pump inhibitor twice a day and have her modify her diet. I will see her back in 4-6 weeks so we can reevaluate it if need be we can go to the operating room for biopsy and KTP laser ablation. I recommend that the patient inhale steam, hydrate markedly, and take Guaifenesin as needed to maintain healthy mucosa and break up any thick mucus. Patient will follow up with me in 3-4 weeks for repeat videostroboscopy and reevaluation. Patient will follow up sooner with any deterioration in symptoms. Laryngopharyngeal reflux 11/05/2018 Assessment & Plan (12/30/2024 9:25 AM EST): Patient will stay on her reflux medication. Assessment & Plan (11/04/2024 9:27 AM EST): Patient with laryngal pharyngeal reflux she will stay on her reflux medications. Assessment & Plan (08/26/2024 9:23 AM EDT): Patient is on her reflux medication. She is avoiding caffeine. Assessment & Plan (04/10/2024 9:27 AM EDT): Patient with a history of reflux. She does take her reflux medications but still occasionally feels some heartburn. I do recommend she consider using an alginate containing product such as reflux Gourmet which would be available online on [employer].I recommend the patient try the alginate containing product Reflux Gourmet which is available online on [employer]. Patient can take a teaspoon of this after every meal and prior to bed.Try this for at least 4 weeks. Assessment & Plan (09/14/2023 8:25 AM EST): Patient still on her reflux medication and she will continue on this. Assessment & Plan (06/14/2023 8:23 AM EDT): Patient will remain on her reflux meds. Assessment & Plan (06/23/2022 8:40 AM EDT): Patient with a history of reflux she will stay on her reflux medication as this is helping her quite a bit. Assessment & Plan (09/01/2021 8:27 AM EDT): Patient with a history of laryngal pharyngeal reflux. She needs a refill on her proton pump inhibitor which we will give her today. Assessment & Plan (03/29/2021 8:29 AM EDT): Patient with slight erythema of the left vocal fold. There may be some laryngal pharyngeal reflux involved here I will put her on a proton pump inhibitor till I see her next. Assessment & Plan (11/05/2018 10:55 AM EST): The patient has evidence of a possible [...] will follow her up in 4-6 weeks. Encounters Date Type Department Care Team Description 12/30/2024 10:00 AM EST Follow-Up [facility] Department of Otolaryngology [address] [place] [address] Enrique Taylor MD Verrucous carcinoma (HCC) (Primary Dx); Dysphonia; Laryngeal hyperkeratosis; Laryngopharyngeal reflux 12/15/2024 11:30 AM EST - 12/15/2024 1:00 PM EST Surgery [facility] Operating Room Services [address] [place] [address] Enrique Taylor MD MICROLARYNGOSCOPY, WITH VYLO LASER PROCEDURE [[id number] (CPT??)] 12/15/2024 10:05 AM EST - 12/15/2024 4:00 PM EST Hospital Encounter [facility] [address] [place] [address] Enrique Taylor MD Dysphonia; Laryngeal hyperkeratosis Discharge Disposition: Home or Self Care 11/04/2024 9:00 AM EST Follow-Up [facility] Department of Otolaryngology [address] [place] [address] Enrique Taylor MD Dysphonia (Primary Dx); Laryngeal hyperkeratosis; Verrucous carcinoma (HCC); Laryngopharyngeal reflux 10/13/2024 1:45 PM EST - 10/13/2024 3:30 PM EST Surgery [facility] Room [facility] [address] [place] [address] Enrique Taylor MD LARYNGOSCOPY, DIRECT, WITH BIOPSY [[id number] (CPT??)] 10/13/2024 12:36 PM EST - 10/13/2024 4:39 PM EST Hospital Encounter [facility] [address] [place] [address] Enrique Taylor MD Laryngeal hyperkeratosis; Verrucous carcinoma (HCC) Discharge Disposition: Home or Self Care from Last 3 Months Immunizations Name Administration Dates Next Due COVID-19 SAMANTHA VACCINE 01/19/2021 Social History Tobacco Use Types Packs/Day Years Used Date Smoking Tobacco: Former Cigarettes Q uit: 02/04/1981 Smokeless Tobacco: Never Tobacco Cessation:Counseling Given: Not Answered Alcohol Use Standard Drinks/Week Comments No 0 [...] suspected to have Coronavirus/COVID-19? No / Unsure 12/30/2024 9:07 AM EST Last Filed Vital Signs Vital Sign Reading [...] EST Height 160 cm (5' 3 ) 12/30/2024 9:10 AM EST Body Mass Index 26.8 12/15/2024 10:10 AM EST Plan of Treatment Upcoming Encounters Date Type Department Care Team (Late st Contact Info) Description 03/10/2025 8:30 AM EDT Office Visit [facility] Department of Otolaryngology [address] [place], [place] [id number] Enrique Taylor MD [address] [facility] [place] [id number] Health Maintenance Due Date Last Done Comments Bone Density Screening 1949 CT Colonography 1949 Colonoscopy 1950 Colorectal Cancer Screening 1949 FIT-DNA (Cologuard) 1949 FIT 1949 FOBT 1950 Flex Sigmoidoscopy - 5y 1949 HIV Screening 1950 Medicare Annual Wellness (AWV) 1949 DTaP,Tdap,and Td Vaccines (1 - Tdap) 1967 Hepatitis C Screening 1967 Zoster Vaccines (1 of 2) 1999 Pneumococcal Vaccine, 65+ Ye ars (2 of 2 - PPSV23 or PCV20) 06/29/2017 06/29/2016 COVID-19 Vaccine (2 - 2023-2 5 season) 2024 01/19/2021 Influenza Vaccine (#1) 2024 HPV Vaccines Aged Out No longer eligi ble based on patient's age to complete this topic Hepatitis A Vaccines Aged Out No long er eligible based on patient's age to complete this topic Meningococcal Vaccine Aged Out No taylor reinier eligible based on patient's age to complete this topic Procedures Procedure Name Priority Date/Time Associated Diagnosis Comments SURGICAL SPECIMEN EXAM Routine 12/15/2024 12:36 PM EST Dysphonia Laryngeal hyperkeratosis HI AN ELECTIVE ENDOTRACHEAL AIRWAY Routine 12/15/2024 12:18 PM EST HI LARGSC EXC LEVY&/STRPG CORDS/EPIGL MCRSCP/TLSCP 12/15/2024 12:12 PM EST Dysphonia Laryngeal hyperkeratosis SURGICAL SPECIMEN EXAM Routine 10/13/2024 3:24 PM EST Laryngeal hyperkeratosis Verrucous carcinoma (HCC) [facility] ANESTHESIA IN OR AIRWAY Routine 10/13/2024 3:08 PM EST HI LARYNGOSCOPY W/BIOPSY MICROSCOPE/TELESCOP E 10/13/2024 2:45 PM EST Laryngeal hyperkeratosis Verrucous carcinoma (HCC) Special Needs Zeitels laryngoscope, regular laryngeal instruments, 0 degree scope, 5.0 ET tube from Last 3 Months Results * Surgical Specimen Exam (12/15/2024 12:36 PM EST) Only the most recent of2 resultswithin the time period is included. Case Report Surgical Pathology ?Case: [id number] ? Authorizing Provider: ??Enrique Taylor MD ?Collected: ? 12/15/2024 1236 ? Ordering Location: ? [facility] Operating ? Received: ?12/15/2024 1245 ? Room Services ? Pathologist: ? Lauren, Ruthy, MD ? Intraop: ? Lauren, Ruthy, MD ? Specimens: ?? A) - Larynx, Left posterior inferior vocal cord ? B) - Larynx, Left posterior inferior vocal cord ? C) - Larynx, Right true vocal cord ? D) - Larynx, Left false vocal cord ? E) - Larynx, Posterior commissure ? F) - Larynx, Infraglottic ? 12/23/2024 4:04 PM [facility] Final Diagnosis A. Left posterior [...] to the patient's prior Surgical Pathology material ([id number], [id number] and [id number]) with similar findings. 12/23/2024 4:04 PM EST [facility] Intraoperative Consultation AFS) Squamous mucosa with papillary hyperplasia, hyper-/parakerat osis. Dr. Aguilar notified the intraoperative diagnosis to Dr. Taylor in OR 11 on 12/15/2024 at 12:57 pm. 12/23/2024 4:04 PM EST [facility] Gross Description Prosector: CHRISTINA GOMEZ([facility]). The specimen containers are labeled with the [...] submitted labeled F1. 12/23/2024 4:04 PM EST [facility] Embedded Images 4:04 PM [facility] Tissue Laryngeal structure / Unknown [...] MD LAB PATHOLOGY (NO SOURCE) Final Result Performing Organization Address City/State/[facility] [[email or web address]] Co de Phone Number [facility] [address] [place] [phone], * HI AN ELECTIVE ENDOTRACHEAL AIRWAY (12/15/2024 12:18 PM EST) Narrative Gladys Mitchell APRN - 12/15/2024 12:18 PM EST Gladys Mitchell APRN ? 12/15/2024 12:30 PM Airway - In OR Date/Time: 12/15/2024 12:18 PM General Information and Staff Authorized by: Van Collins MD Performed by: Gladys Mitchell APRN, CRNA Final Airway Details Final airway type: endotracheal airway Successful airway: ETT/Oral Successful intubation technique: direct laryngoscopy Facilitating devices/methods: intubating stylet Endotracheal tube insertion site: oral Blade size: #3 ETT size (mm): 5.5 Cormack-Lehane Classification: grade I - visualization of entire laryngeal aperture (95%) Placement verified by: chest auscultation and capnometry Measured from: gums ETT to gums (cm): 21 Number of attempts at approach: 1 Indications and Patient Condition Preoxygenated: yes Mask difficulty assessment: 1 - easy mask us Van Collins MD ANESTHESIA ORDERABLES Final R esult * Airway - In OR (10/13/2024 3:08 PM EST) Narrative Mikey Carbajal, DO - 10/13/2024 3:08 PM EST Mikey Carbajal, DO ? 10/13/2024 ??3:09 PM Airway - In OR Date/Time: 10/13/2024 3:08 PM General Information and Staff Authorized by: Maurice Ziegler MD Performed by: Mikey Carbajal DO, resident Final Airway Details Final airway type: endotracheal airway Successful airway: ETT/Oral Successful intubation technique: direct laryngoscopy Facilitating devices/methods: intubating stylet Endotracheal tube insertion site: oral Blade: Karma Blade size: #3 ETT size (mm): 5.5 (surgeon requesting smaller tube) Cormack-Lehane Classification: grade II - visualization of posterior part of the laryngeal aperture (4%) Placement verified by: chest auscultation and capnometry Measured from: lips ETT to lips (cm): 20 Number of attempts at approach: 2 (first attempt by med student, unable to see vocal cords, second attempt by resident and successful) Indications and Patient Condition Preoxygenated: yes Mask difficulty assessment: 1 - easy mask Additional Comments Age/size appropriate circuit and mask,, IV Induction, ??EtCO2 Present during mask ventilation. Atraumatic Intubation; No Dental Damage; Breath Sounds Equal Bilaterally; EtCO2 Present; ??No Wheezes, Rales or Rhonchi; Eyes Taped Closed; Humidifier Placed In Line. 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
--- OUTSIDE RECORDS SUMMARY | 2025-01-01 10:11 | XMS_ITS ---
Author Organization [facility] Address [address] [place] [address] Care Team Providers Care Senior Application Programmer Name Role Phone Lizzy Kendrick MD Primary Care Provider Active Problems Problem Noted Date Diagnosed Date [...] Patient had a previous biopsy done in [place] 05/22/18 which was consistent with parakeratosis hyperkeratosis. 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 Videostroboscopy [...] as chest congestion which is available at [facility]. Patient should take 400 to 600 mg [...] Gourmet which would be available online on [employer].I recommend the patient try the alginate containing product Reflux Gourmet which is available online on [employer]. Patient can take a teaspoon of this [...] will follow her up in 4-6 weeks. Current Oncology Plans No current plan information found. Past Plans No past plan information found. Radiation Treatments * No radiation treatments are documented for this patient in [employer]. Treatments may have been administered in another system. Lifetime Dose Tracking * Chemical Lifetime Dose Automatic Entry Manual Entr y Radiation (DLP) 297 mGy-cm 297 mGy-cm 0 mGy-cm CTDIvol min 9.9 mGy 9.9 mGy 0 mGy CTDIvol max 9.9 mGy 9.9 mGy 0 mGy [id number] 3.4 mSv 3.4 mSv 0 mSv
--- OUTSIDE RECORDS SUMMARY | 2025-01-01 10:11 | XMS_ITS | Encounter Summary ---
Author Organization [facility] Address [address] [place] [address] Care Team Providers Care Legal Process Specialist Name Role Phone Lizzy Kendrick MD Primary Care Provider Reason for Visit * Reason Comments Post-op Encounter Details Date Type Department Care Team (Late st Contact Info) Description 12/30/2024 10:00 AM EST Follow-Up [facility] Department of Otolaryngology [address] [place] [address] Enrique Taylor MD [address] [facility] [place] [id number] Verrucous carcinoma (HCC) (Primary Dx); Dysphonia; Laryngeal hyperkeratosis; Laryngopharyngeal reflux Social History Tobacco Use Types Packs/Day Years [...] Recorded In the last 10 days, have holger u been in contact with someone who was confirmed or suspected to have Coronavirus/COVID-19? No / Unsure 12/30/2024 9:07 AM EST documented as of this encounter Last Filed Vital Signs Vital Sign Reading Time Taken Comments Blood Pressure - - Pulse - - Temperature - - Respiratory Rate - - Oxygen Saturation - - Inhaled Oxygen Concentration - - Weight - - Height 160 cm (5' 3 ) 12/30/2024 9:10 AM EST Body Mass Index - - documented in this encounter Patient Instructions * Patient Instructions* Enrique Taylor MD - 12/30/2024 10:00 AM EST Dysphonia Patient's voice quality is slightly raspy but it is stable. She recovered very nicely from her procedure. Verrucous carcinoma (HCC) Patient with lesions consistent with verrucous carcinoma status post her most recent direct laryngoscopy and VYLO laser ablation of the lesion. Patient will follow-up with me in 10 weeks time. Laryngeal hyperkeratosis Patient with laryngeal hyperkeratosis some of which was consistent with verrucous carcinoma. She isstatus post direct laryngoscopy and bluelight laser excision of the lesions. She will follow-up with us in 10 weeks time. Laryngopharyngeal reflux Patient will stay on her reflux medication. documented in this encounter Progress Notes * Enrique Taylor MD - 12/30/2024 10:00 AM EST Images from the original note were not included. Patient ID: Alexsandra Garcia is a 74 y.o. female Reason for visit: Post-op HPI 74 y.o. female with a history of dysphonia, laryngeal hyperkeratosis and verrucous carcinoma returns returns today for a follow-up visit. Patient is status post microlaryngoscopy with VYLO laser procedure status post 12/15/24. Today, patient is doing well overall, and her voice is slowly improving. 12/15/2024 12:36 Surgical Specimen Exam Final Diagnosis A. Left posterior inferior vocal cord, biopsy (AFS): - Superficial fragment of squamous mucosa with papillomatous and atypical verrucous hyperplasia; hyper-/parakeratosis (see comment). B. Left posterior inferior vocal cord, biopsy: - Superficial fragments of squamous mucosa with papillomatous and atypical verrucous hyperplasia; marked hyper-/parakeratosis (see comment). C. Right true vocal cord, biopsy: - Superficial fragments of squamous mucosa with papillomatous and atypical verrucous hyperplasia, hyper-/parakeratosis (see comment). D. Left false vocal cord, biopsy: - Superficial fragment of squamous mucosa with atypical verrucous hyperplasia, and hyper-/parakeratosis; suspicious for recurrent verrucous carcinoma (see comment). E. 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 F. 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 ROS Current Outpatient Medications Medication Sig Dispense Refill amLODIPine (NORVASC) 10 mg tablet Take 10 mg by mouth daily. cholecalciferol, vitamin D3, 50 mcg (2,000 unit) capsule Take 1 capsule by mouth daily. omeprazole (PriLOSEC) 40 mg capsule TAKE 1 CAPSULE BY MOUTH DAILY 30 TO 60 MINUTES BEFORE A MEAL DANIAL EMPTY STOMACH 90 capsule 2 No current facility-administered medications for this visit. Allergies: Alexsandra Garcia is allergic to penicillin v. Past Surgical History: Procedure Laterality Date BREAST LUMPECTOMY HYSTERECTOMY LARYNGOSCOPY multiple No family history on file. Social History Socioeconomic History Marital status: Single Tobacco Use Smoking status: Former Current packs/day: 0.00 Types: Cigarettes Quit date: 02/04/1981 Years since quittin.9 Smokeless tobacco: Never Substance and Sexual Activity Alcohol use: No Drug use: No Social Drivers of Health Food Insecurity: No Food Insecurity (02/14/2021) Hunger Vital Sign Worried About Running Out of Food in the Last Year: Never true Ran Out of Food in the Last Year: Never true Tobacco Use: Medium Risk (12/30/2024) Patient History Smoking Tobacco Use: Former Smokeless Tobacco Use: Never Physical Exam HENT: Patient's voice quality is actually good. There is some raspiness to it but it appears improved compared to her preoperative voice. Procedures Flexible videostroboscopy was performed in the following fashion. The nose was treated with Afrin and Lidocaine, a contact microphone was held to the neck and a flexible 3 chip videostroboscope was inserted into the nasal cavity and advanced into the hypopharynx. The vocal folds had normal abduction, adduction and elongation. Patient still has some degree of stiffness of the right vocal fold the lesion that was on the superior surface of the right vocal fold was completely removed. The interarytenoid mucosa is much improved in the subglottic lesion under the posterior aspect the left vocal fold has improved. The left false vocal fold an area in the anterior arytenoid has improved as well. Airway is normal. Patient is getting some degree of a wave motion.. 12/30/2024 Videostroboscopy Assessment/Plan Diagnosis Plan 1. Verrucous carcinoma (HCC) 2. Dysphonia 3. Laryngeal hyperkeratosis 4. Laryngopharyngeal reflux Dysphonia Patient's voice quality is slightly raspy but it is stable. She recovered very nicely from her procedure. Verrucous carcinoma (HCC) Patient with lesions consistent with verrucous carcinoma status post her most recent direct laryngoscopy and VYLO laser ablation of the lesion. Patient will follow-up with me in 10 weeks time. Laryngeal hyperkeratosis Patient with laryngeal hyperkeratosis some of which was consistent with verrucous carcinoma. She isstatus post direct laryngoscopy and bluelight laser excision of the lesions. She will follow-up with us in 10 weeks time. Laryngopharyngeal reflux Patient will stay on her reflux medication. Patient Instructions Dysphonia Patient's voice quality is slightly raspy but it is stable. She recovered very nicely from her procedure. Verrucous carcinoma (HCC) Patient with lesions consistent with verrucous carcinoma status post her most recent direct laryngoscopy and VYLO laser ablation of the lesion. Patient will follow-up with me in 10 weeks time. Laryngeal hyperkeratosis Patient with laryngeal hyperkeratosis some of which was consistent with verrucous carcinoma. She isstatus post direct laryngoscopy and bluelight laser excision of the lesions. She will follow-up with us in 10 weeks time. Laryngopharyngeal reflux Patient will stay on her reflux medication. Return in about 10 weeks (around 03/10/2025) for Follow-up videostrobe. Scribe Attestation By signing my name below, I, MO DENTON, Flange Machine Operator, attest that this documentation has beenprepared under the direction and in the presence of Enrique Taylor MD Electronically signed: Mo [email or web address]. 12/30/2024 9:25 AM Provider Attestation: IEnrique MD, personally performed the services described in this documentation. All medical record entries were at my direction and in my presence. I have reviewed the chart and any discharge instructions, and agree that the record reflects my personal performance and is accurate and complete. Enrique Taylor MD 12/30/2024 9:26 AM documented in this encounter Miscellaneous Notes * Assessment & Plan Note - Enrique Taylor MD - 12/30/2024 9:25 AM EST Associated Problem(s): Laryngopharyngeal reflux Patient will stay on her reflux medication. * Assessment & Plan Note - Enrique Taylor MD - 12/30/2024 9:25 AM EST Associated Problem(s): Laryngeal hyperkeratosis Patient with laryngeal hyperkeratosis some of which was consistent with verrucous carcinoma. She isstatus post direct laryngoscopy and bluelight laser excision of the lesions. She will follow-up with us in 10 weeks time. * Assessment & Plan Note - Enrique Taylor MD - 12/30/2024 9:24 AM EST Associated Problem(s): Verrucous carcinoma (HCC) Patient with lesions consistent with verrucous carcinoma status post her most recent direct laryngoscopy and VYLO laser ablation of the lesion. Patient will follow-up with me in 10 weeks time. * Assessment & Plan Note - Enrique Taylor MD - 12/30/2024 9:24 AM EST Associated Problem(s): Dysphonia Patient's voice quality is slightly raspy but it is stable. She recovered very nicely from her procedure. documented in this encounter Plan of Treatment Upcoming Encounters Date Type Department Care Team (Late st Contact Info) Description 03/10/2025 8:30 AM EDT Office Visit [facility] Department of Otolaryngology [address] [place] [address] Enrique Taylor MD [address] [facility] [id number] documented as of this encounter Visit Diagnoses Diagnosis Verrucous carcinoma (HCC)- Primary Other malignant neoplasm of unspecified site Dysphonia Laryngeal hyperkeratosis Other diseases of larynx Laryngopharyngeal reflux Acute laryngitis, without mention of obstruction documented in this encounter Care Teams Legal Process Specialist Relationship Specialty Start Date End Date Lizzy Kendrick MD [address] [place] [id number] PCP - General Primary Care 10/30/18 documented as of this encounter
== END 2025-01-01 09:58 | disposition home or self-care (01) ==
PROVIDERS: PCP Internal Medicine; Visit Provider Internal Medicine Nephrology
DX: I12.9 Hypertensive chronic kidney disease with stage 1 through stage 4 chronic kidney disease, or unspecified chronic kidney disease (principal); N18.2 Chronic kidney disease, stage 2 (mild)
CPT/HCPCS: 99214

== ENCOUNTER → 2025-01-01 09:12 | Outpatient (BNVA) | payer MEDICARE, MEDICAID, SELFPAY | PROVIDERS: PCP Internal Medicine; Visit Provider Internal Medicine Nephrology | DX: I12.9 Hypertensive chronic kidney disease with stage 1 through stage 4 chronic kidney disease, or unspecified chronic kidney disease (principal); N18.2 Chronic kidney disease, stage 2 (mild) | CPT/HCPCS: 99212 ==

== ENCOUNTER 2025-10-27 10:46 | Outpatient (AMB) | payer MEDICARE, MEDICAID, SELFPAY ==
[2025-10-27 11:08] VITALS: BP 124/64; PULSE 88; O2SAT 95; BMI 24.3
--- NOTE | 2025-10-27 11:08 | HO.NEPHOV ---
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 She is due to have it done twice a year. She is not on any home oxygen. Her blood pressure had been at goal. Her serum creatinine has been stable. She denies any chest pain, proximal nocturnal dyspnea, orthopnea, pedal edema, orthostasis or urinary symptoms. She avoids nonsteroidal anti-inflammatories and tries to maintain good hydration [facility] Medical History (Updated 12/04/23 @ 11:25 by Arvind Ball MD) Hypertensive chronic kidney disease with stage 1 through stage 4 chronic kidney disease, or unspecified chronic kidney disease Chronic kidney disease, stage 2 (mild) Surgical History History of throat surgery Family History Mother Pancreatic cancer Social History Household Members: None Housing: Apartment Alcohol intake: never Patient Tobacco Use Status: Former Tobacco user Current occupational status: retired Review of Systems Const All systems reviewed & are unremarkable except as noted in HPI and below Physical Exam Vital Signs: Last Vital Signs Pulse 88 10/27/25 11:08 BP 124/64 10/27/25 11:08 Pulse Ox 95 10/27/25 11:08 Oxygen Delivery Method Room Air 10/27/25 11:08 BMI result Body Mass Index 24.3 Const General: comfortable and no acute distress Orientation/consciousness: patient oriented x3 HEENT Head: Yes normocephalic Mouth: Normal oral and palatal mucosa present Eyes EOM: EOMs intact bilaterally Neck Neck: Yes supple Resp Auscultation: clear to auscultation bilaterally Cardio Jugular venous distension: no JVD Rate: regular rate GI Palpation (GI): Soft to palpation Auscultation: normal bowel sounds General: Yes no CVA tenderness Back/Spine/Pelvis Back: no CVA tenderness Skin General skin exam: no rashes or lesions noted Neuro General: patient oriented x3 and moves all extremities Extrem General: Yes no pedal edema Assessment & Plan Assessment & Plan (1) Chronic kidney disease, stage 2 (mild): Code(s): N18.2 - Chronic kidney disease, stage 2 (mild) Category: Medical (2) Hypertensive chronic kidney disease with stage 1 through stage 4 chronic kidney disease, or unspecified chronic kidney disease: Code(s): I12.9 - Hypertensive chronic kidney disease with stage 1 through stage 4 chronic kidney disease, or unspecified chronic kidney disease Category: Medical Plan Alexsandra has baseline mild CKD. Her renal functions are currently stable .Her blood pressure is currently well controlled. She had been on SMOOTH-inhibitor which was discontinued in the past due to her SMOOTH-inhibitor intolerance. She has no active vascular issues. She should be on a low-sodium diet. She avoids nonsteroidal anti-inflammatories. I did not make any medication changes today. Follow-up lab work ordered. All questions answered. Orders: Orders Blood Urea Nitrogen 8 Months I12.9 - Hypertensive chronic kidney disease with stage 1 through stage 4 chronic kidney disease, or unspecified chronic kidney disease, N18.2 - Chronic kidney disease, stage 2 (mild) Calcium 8 Months I12.9 - Hypertensive chronic kidney disease with stage 1 through stage 4 chronic kidney disease, or unspecified chronic kidney disease, N18.2 - Chronic kidney disease, stage 2 (mild) Electrolytes 8 Months I12.9 - Hypertensive chronic kidney disease with stage 1 through stage 4 chronic kidney disease, or unspecified chronic kidney disease, N18.2 - Chronic kidney disease, stage 2 (mild) Creatinine 8 Months I12.9 - Hypertensive chronic kidney disease with stage 1 through stage 4 chronic kidney disease, or unspecified chronic kidney disease, N18.2 - Chronic kidney disease, stage 2 (mild) Medications: Refilled amlodipine 10 mg PO DAILY 90 tabs 4RF Coding Level of Care Code Est Pt Level 4 (59928) Diagnoses Chronic kidney disease, stage 2 (mild) N18.2 Hypertensive chronic kidney disease with stage 1 through stage 4 chronic kidney disease, or unspecified chronic kidney disease I12.9
--- OUTSIDE RECORDS SUMMARY | 2025-10-27 14:30 | XMS_ITS | Clinical Summary ---
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 Active cholecalcifero l, vitamin D3, 50 mcg (2,000 unit) capsule Take 1 capsule by mouth in the morning. Active lidocaine HCL (lidocaine) 2 % solution Take 10 mL by mouth 6 (xis) times a day as needed (sore throat). Mix the lidocaine with Maalox or Mylanta 50%/50% and use the solution as directed 200 mL 3 07/20/20 25 Active LORazepam (ATIVAN) 0.5 mg tablet Take 1 tablet (0.5 mg total) by mouth every 8 (eight) hours as needed for anxiety. 40 tablet 1 08/13/20 25 Active Additional Information Patient not taking.Reported on 10/05/2025 oxyCODONE (ROXICODONE) 5 mg immediate release tabletIndicati ons:Verrucous carcinoma (HCC) Take 1 tablet (5 mg total) by mouth every 4 (four) hours as needed for moderate pain (4-7). Max Daily Amount: 30 mg 50 tablet 08/21/20 25 Active Additional Information Patient not taking.Reported on 10/05/2025 omeprazole (PriLOSEC) 40 mg capsuleIndicat ions:Laryngoph aryngeal reflux TAKE 1 CAPSULE BY MOUTH DAILY 30 TO 60 MINUTES BEFORE A MEAL ON AN EMPTY STOMACH 90 capsule 2 10/05/20 25 Active omeprazole (PriLOSEC) 40 mg capsuleIndicat ions:Laryngoph aryngeal reflux TAKE 1 CAPSULE BY MOUTH DAILY 30 TO 60 MINUTES BEFORE A MEAL ON AN EMPTY STOMACH 90 capsule 2 12/08/19 25 025 Discontinued Hospital, Clinic, or Other Facility Administered Medication Ordered Dose Route Frequency Start Date End Date Status lidocaine-oxymetazoline 2%-0.025% nasal solution 1 applicationIndications:Verru cous carcinoma (HCC) 1 application nasl Daily PRN 04/28/2025 A ctive Active Problems Problem Noted Date Diagnosed Date [...] daily. 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 She is status post most recent bluelight laser ablation of the hyperkeratosis. She is doing very well. Patient scheduled to have radiation therapy here in our radiation oncology department. Patient had a PET scan done 2 days ago. She is also scheduled to have a CT scan done today as well. Patient will be following up in radiation oncology next week. Assessment & Plan (04/17/2025 11:58 AM EDT): Patient with a history of verrucous carcinoma she also has had significant hyperkeratotic tissue that is been treated with multiple direct laryngoscopy's and KTP laser's. The intraoperative interval is getting much shorter as of late. Her most recent procedure in November did reveal some changes consistent with recurrent verrucous carcinoma. Our plan will be to get a chest x-ray today I will asked Dr. Gomez to see her as well for consideration of possible radiation therapy. Assessment & Plan (03/10/2025 8:50 AM EDT): Patient with a history of verrucous carcinoma of the larynx. She had her last procedure in November of this year. The left posterior vocal fold the left infraglottic and interarytenoid area were consistent with possible recurrence of the verrucous carcinoma. There appears to be recurrence of these lesions on exam as well as some on the right false vocal fold and the right ventricle. I will have the patient follow-up with me in about 6 to 8 weeks. At that point we will probably get her scheduled for sometime in the fall to go back for another procedure. Patient is in agreement with this plan. Assessment & Plan (12/30/2024 9:24 AM EST): [...] symptoms. 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 She had some verrucous changes. She is healing nicely and is cleared for her radiation therapy. 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 Patient was scheduled for direct laryngoscopy and KTP P ablation in 2019 but she canceled the procedure. Patient now [...] Leukoplakia of larynx 12/17/2018 Assessment & Plan (07/03/2025 8:23 AM EDT): Patient with leukoplakia of the larynx with some verrucous changes status post her most recent direct laryngoscopy and bluelight laser debridement. 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 She also has an extension subglottically on the left side. We will follow this closely. 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 Videostroboscopy [...] scheduled soon. Dysphonia 11/05/2018 Assessment & Plan (07/03/2025 8:23 AM EDT): Patient's voice quality is improved postop. Assessment & Plan (04/17/2025 11:57 AM EDT): Patient with dysphonia secondary to recurring hyperkeratotic lesions of the larynx consistent in some respects with recurring verrucous carcinoma. Patient had her last procedure done in November. She now comes back with quickly recurring lesions. I did have a discussion with Dr. Gomez regarding her care and we may consider her for radiation therapy however I will get a chest CT initially. I will put in a consult for Dr. Mcbride to evaluate her. Assessment & Plan (03/10/2025 8:50 AM EDT): Patient's voice quality is rough. She is understandable. Her voice is better than it was preop. Assessment & Plan (12/30/2024 9:24 AM EST): [...] as chest congestion which is available at [facility]. Patient should take 400 to 600 mg [...] symptoms. Laryngopharyngeal reflux 11/05/2018 Assessment & Plan (03/10/2025 8:51 AM EDT): Patient is on her reflux medication and she will continue on this moving forward. Assessment & Plan (12/30/2024 9:25 AM EST): [...] Gourmet which would be available online on [employer].I recommend the patient try the alginate containing product Reflux Gourmet which is available online on [employer]. Patient can take a teaspoon of this [...] Encounters Date Type Department Care Team Description 10/05/2025 10:00 AM EST Procedure visit formerly [facility] Department of Otolaryngology [address] [place] [address] [phone] Enrique Taylor MD Verrucous carcinoma (HCC) (Primary Dx); Dysphonia 09/14/2025 9:54 AM EST - 09/14/2025 11:59 PM [place] [address] Orestes Gomez MD 08/28/2025 9:59 AM EDT - 08/28/2025 11:59 [place] [address] Orestes Gomez MD Malignant neoplasm of glottis (HCC) Discharge Disposition: Home or Self Care 08/27/2025 10:30 [place] [address] Tasneem López, APPLE CHECKER Follow-up (Seen in Radiation ) 08/27/2025 9:49 AM EDT - 08/27/2025 11:59 [place] [address] Orestes Gomez MD Malignant neoplasm of glottis (HCC) Discharge Disposition: Home or Self Care 08/26/2025 9:48 AM EDT - 08/26/2025 11:59 [place] [address] Orestes Gomez MD Malignant neoplasm of glottis (HCC) Discharge Disposition: Home or Self Care 08/25/2025 8:20 AM EDT - 08/25/2025 11:59 [place] [address] Orestes Gomez MD Malignant neoplasm of glottis (HCC) Discharge Disposition: Home or Self Care 08/24/2025 11:01 AM EDT - 08/24/2025 11:59 [place] [address] Orestes Gomez MD Malignant neoplasm of glottis (HCC) Discharge Disposition: Home or Self Care 08/21/2025 9:51 AM EDT - 08/21/2025 11:59 [place] [address] Orestes Gomez MD Malignant neoplasm of glottis (HCC); Verrucous carcinoma (HCC) Discharge Disposition: Home or Self Care 08/20/2025 7:56 AM EDT - 08/20/2025 11:59 [place] [address] Orestes Gomez MD Malignant neoplasm of glottis (HCC) Discharge Disposition: Home or Self Care 08/19/2025 11:39 AM EDT - 08/19/2025 11:59 [place] [address] Orestes Gomez MD Malignant neoplasm of glottis (HCC) Discharge Disposition: Home or Self Care 08/18/2025 11:38 AM EDT - 08/18/2025 11:59 [place] [address] Orestes Gomez MD Malignant neoplasm of glottis (HCC) Discharge Disposition: Home or Self Care 08/17/2025 11:50 AM EDT Office Visit [place] [phone] Tasneem López, APPLE CHECKER 08/17/2025 11:12 AM EDT - 08/17/2025 11:59 PM EDT Hospital Encounter [place] [phone] Orestes Gomez MD Malignant neoplasm of glottis (HCC) Discharge Disposition: Home or Self Care 08/14/2025 9:41 AM EDT - 08/14/2025 11:59 PM EDT Hospital Encounter [address] [address] Orestes Gomez MD Malignant neoplasm of glottis (HCC) Discharge Disposition: Home or Self Care 08/13/2025 10:00 AM EDT - 08/13/2025 11:59 PM EDT Hospital Encounter [address] [address] Orestes Gomez MD Malignant neoplasm of glottis (HCC) Discharge Disposition: Home or Self Care 08/12/2025 10:00 AM EDT - 08/12/2025 11:59 PM EDT Hospital Encounter [address] [address] [phone] Orestes Gomez MD Malignant neoplasm of glottis (HCC) Discharge Disposition: Home or Self Care 08/11/2025 10:00 AM EDT - 08/11/2025 11:59 PM EDT Hospital Encounter [address] [address] Orestes Gomez MD Malignant neoplasm of glottis (HCC) Discharge Disposition: Home or Self Care 08/11/2025 Orders Only [address] [address] Orestes Gomez MD Verrucous carcinoma (HCC) (Primary Dx) 08/10/2025 11:15 AM EDT - 08/10/2025 11:59 PM EDT Hospital Encounter [address] [address] Orestes Gomez MD Malignant neoplasm of glottis (HCC) Discharge Disposition: Home or Self Care 08/07/2025 10:40 AM EDT - 08/07/2025 11:59 [place] [address] Orestes Gomez MD Malignant neoplasm of glottis (HCC) Discharge Disposition: Home or Self Care 08/06/2025 11:40 AM EDT - 08/06/2025 11:59 [place] [address] Orestes Gomez MD Verrucous carcinoma (HCC) (Primary Dx); Malignant neoplasm of glottis (HCC) Discharge Disposition: Home or Self Care 08/06/2025 [place] [address] Orestes Gomez MD Verrucous carcinoma (HCC) (Primary Dx) 08/05/2025 11:16 AM EDT - 08/05/2025 11:59 PM [place] [address] Orestes Gomez MD Malignant neoplasm of glottis (HCC) Discharge Disposition: Home or Self Care 08/04/2025 11:30 AM EDT - 08/04/2025 11:59 PM [place] [address] Orestes Gomez MD Malignant neoplasm of glottis (HCC) Discharge Disposition: Home or Self Care 08/03/2025 11:09 AM EDT - 08/03/2025 11:59 PM [place] [address] Orestes Gomez MD Malignant neoplasm of glottis (HCC) Discharge Disposition: Home or Self Care 07/31/2025 11:10 AM EDT - 07/31/2025 11:59 PM EDT Hospital Encounter [address] [address] Orestes Gomez MD Malignant neoplasm of glottis (HCC) Discharge Disposition: Home or Self Care 07/30/2025 11:40 AM EDT - 07/30/2025 11:59 PM [place] [address] Orestes Gomez MD Malignant neoplasm of glottis (HCC) Discharge Disposition: Home or Self Care 07/29/2025 9:58 AM EDT - 07/29/2025 11:59 [place] [address] Orestes Gomez MD Malignant neoplasm of glottis (HCC) Discharge Disposition: Home or Self Care 07/28/2025 11:29 AM EDT - 07/28/2025 11:59 PM EDT Hospital Encounter [address] [address] Orestes Gomez MD Malignant neoplasm of glottis (HCC) Discharge Disposition: Home or Self Care from Last 3 Months Immunizations Immunization Administration Dates Next Due COVID-19 SAMANTHA VACCINE 01/19/2021 Social History Tobacco Use Types Packs/Day Years Used Date Smoking Tobacco: Former Cigarettes 0 Q uit: 02/04/1981 Smokeless Tobacco: Never Tobacco [...] suspected to have Coronavirus/COVID-19? No / Unsure 10/05/2025 8:41 AM EST Last Filed Vital Signs Vital Sign Reading Time Taken Comments Blood Pressure 128/60 10/05/2025 8:56 AM EST Pulse 91 09/14/2025 11:13 AM EST Temperature 36.7 C (98.1 F) 09/14/2025 11:13 AM EST Respiratory Rate 16 07/15/2025 11:05 AM EDT Oxygen Saturation 96% 09/14/2025 11:13 AM EST Inhaled Oxygen Concentration - - Weight 65.8 kg (145 lb) 10/05/2025 8:56 AM EST Height 160 cm (5' 3 ) 10/05/2025 8:56 AM EST Body Mass Index 25.69 10/05/2025 8:56 AM EST Plan of Treatment Upcoming Encounters Date Type Department Care Team (Late st Contact Info) Description 11/02/2025 8:30 AM EST Appointment formerly [facility] [address] [place] [phone] Orestes Gomez MD [address] [facility] [phone] 12/07/2025 9:00 AM EST Procedure visit formerly [facility] Department of Otolaryngology [address] [place] [id number] Enrique Taylor MD [address] [facility] [phone] Health Maintenance Due Date Last Done Comments Bone Density Screening 1950 HIV Screening 1950 Medicare Annual Wellness (AWV) 1950 DTaP,Tdap,and Td Vaccines (1 - Tdap) 1967 Hepatitis C Screening 1967 Hepatitis A Vaccines (1 of 2 - Risk 2-dose series) 1968 Pneumococcal Vaccine, 50+ Years (3 of 3 - PCV20 or PCV21) 08/24/2016 06/29/2016, 03/02/2015, 07/19/2009 Zoster Vaccines (2 of 2) 11/21/2018 09/26/2018 COVID-19 Vaccine (4 - season) 2025 07/31/2023, 12/05/2021, 01/19/2021 Influenza Vaccine (#1) 2025 , 07/10/2022, 07/06/2021, Additional history exists HPV Vaccines Aged Out No longer eligi ble based on patient's age to complete this topic Meningococcal Vaccine Aged Out No taylor reinier eligible based on patient's age to complete this topic Procedures Procedure Name Priority Date/Time Associated Diagnosis Comments RAD ONC MSQ TREATMENT SUMMARY Routine 08/28/2025 10:21 AM EDT Malignant neoplasm of glottis (HCC) RAD ONC MSQ TREATMENT SUMMARY Routine 08/27/2025 10:43 AM EDT Malignant neoplasm of glottis (HCC) RAD ONC MSQ TREATMENT SUMMARY Routine 08/26/2025 10:23 AM EDT Malignant neoplasm of glottis (HCC) RAD ONC MSQ TREATMENT SUMMARY Routine 08/25/2025 8:34 AM EDT Malignant neoplasm of glottis (HCC) RAD ONC MSQ TREATMENT SUMMARY Routine 08/24/2025 11:35 AM EDT Malignant neoplasm of glottis (HCC) RAD ONC MSQ TREATMENT SUMMARY Routine 08/21/2025 10:11 AM EDT Malignant neoplasm of glottis (HCC) RAD ONC MSQ TREATMENT SUMMARY Routine 08/20/2025 8:27 AM EDT Malignant neoplasm of glottis (HCC) RAD ONC MSQ TREATMENT SUMMARY Routine 08/19/2025 11:57 AM EDT Malignant neoplasm of glottis (HCC) RAD ONC MSQ TREATMENT SUMMARY Routine 08/18/2025 11:56 AM EDT Malignant neoplasm of glottis (HCC) RAD ONC MSQ TREATMENT SUMMARY Routine 08/17/2025 11:17 AM EDT Malignant neoplasm of glottis (HCC) RAD ONC MSQ TREATMENT SUMMARY Routine 08/14/2025 10:05 AM EDT Malignant neoplasm of glottis (HCC) RAD ONC MSQ TREATMENT SUMMARY Routine 08/13/2025 11:02 AM EDT Malignant neoplasm of glottis (HCC) RAD ONC MSQ TREATMENT SUMMARY Routine 08/12/2025 10:41 AM EDT Malignant neoplasm of glottis (HCC) RAD ONC MSQ TREATMENT SUMMARY Routine 08/11/2025 10:20 AM EDT Malignant neoplasm of glottis (HCC) RAD ONC MSQ TREATMENT SUMMARY Routine 08/10/2025 11:29 AM EDT Malignant neoplasm of glottis (HCC) RAD ONC MSQ TREATMENT SUMMARY Routine 08/07/2025 11:25 AM EDT Malignant neoplasm of glottis (HCC) RAD ONC MSQ TREATMENT SUMMARY Routine 08/06/2025 12:48 PM EDT Malignant neoplasm of glottis (HCC) RAD ONC MSQ TREATMENT SUMMARY Routine 08/05/2025 11:44 AM EDT Malignant neoplasm of glottis (HCC) RAD ONC MSQ TREATMENT SUMMARY Routine 08/04/2025 11:46 AM EDT Malignant neoplasm of glottis (HCC) RAD ONC MSQ TREATMENT SUMMARY Routine 08/03/2025 11:25 AM EDT Malignant neoplasm of glottis (HCC) RAD ONC MSQ TREATMENT SUMMARY Routine 07/31/2025 11:55 AM EDT Malignant neoplasm of glottis (HCC) RAD ONC MSQ TREATMENT SUMMARY Routine 07/30/2025 11:54 AM EDT Malignant neoplasm of glottis (HCC) RAD ONC MSQ TREATMENT SUMMARY Routine 07/29/2025 10:20 AM EDT Malignant neoplasm of glottis (HCC) RAD ONC MSQ TREATMENT SUMMARY Routine 07/28/2025 11:55 AM EDT Malignant neoplasm of glottis (HCC) from Last 3 Months Results * Rad Onc Msq Treatment Summary (08/28/2025 10:21 AM EDT) Pathologist [facility] Treatment Site Larynx [facility] [place] [facility] Course Number 1 [employer] [facility] Prescribed Fractional Dose 200 cGray [facility] [employer] [facility] Prescribed Total Dose 6,600 cGray [facility] [employer] Actual Fractions Delivered 33 [facility] [employer] [facility] Prescription Pattern Comment Secondary PTV - 5940 cGy [facility] [employer] Actual Session Delivered Dose 200 cGray [facility] [employer] Actual Total Dose 6,600 cGray [facility] Prescribed Technique VMAT [facility] [facility] Elapsed Days 44 [facility] [place] [facility] Start Date 07/15/2025 [facility] Last Date 08/28/2025 [facility] Prescribed Number of Fractions 33 [employer] [facility] 08/28/2025 10:2 1 AM EDT us Physician Radiation Oncology MD RADIATION ONCOLO GY ORDERABLES Final Result [facility] [employer] [facility] [address] [facility] [place] [address], * Rad Onc Msq Treatment Summary (08/27/2025 10:43 AM EDT) Treatment Site Larynx [facility] Course Number 1 [facility] [employer] Prescribed Fractional Dose 200 cGray [facility] [facility] Prescribed Total Dose 6,600 cGray [facility] Actual Fractions Delivered 32 [facility] Prescription Pattern Comment Secondary PTV - 5940 cGy [facility] Actual Session Delivered Dose 200 cGray [facility] Actual Total Dose 6,400 cGray [facility] Prescribed Technique VMAT [facility] Elapsed Days 43 [facility] Start Date 07/15/2025 [facility] Last Date 08/27/2025 [facility] Prescribed Number of Fractions 33 [facility] 08/27/2025 10:4 3 AM EDT Physician Radiation Oncology MD RADIATION ONCOLO GY ORDERABLES Final Result Performing Organization Address City/[facility]/ZIP Co de Phone Number [facility] [address] [facility] [place] [address], [place] * Rad Onc Msq Treatment Summary (08/26/2025 10:23 AM EDT) Pathologist [facility] Treatment Site Larynx [facility] Course Number 1 [facility] Prescribed Fractional Dose 200 cGray [facility] Prescribed Total Dose 6,600 cGray [facility] Actual Fractions Delivered 31 [facility] Prescription Pattern Comment Secondary PTV - 5940 cGy [facility] Actual Session Delivered Dose 200 cGray [facility] Actual Total Dose 6,200 cGray [facility] Prescribed Technique VMAT [facility] Elapsed Days 42 [facility] Start Date 07/15/2025 [facility] Last Date 08/26/2025 [facility] Prescribed Number of Fractions 33 [facility] 08/26/2025 10:2 3 AM EDT Physician Radiation Oncology MD RADIATION ONCOLO GY ORDERABLES Final Result [facility] [address] [facility] [place] [address], [place] * Rad Onc Msq Treatment Summary (08/25/2025 8:34 AM EDT) [facility] Treatment Site Larynx [facility] Course Number 1 [facility] Prescribed Fractional Dose 200 cGray [facility] Prescribed Total Dose 6,600 cGray [facility] Actual Fractions Delivered 30 [facility] Prescription Pattern Comment Secondary PTV - 5940 cGy [facility] Actual Session Delivered Dose 200 cGray [facility] Actual Total Dose 6,000 cGray [facility] Prescribed Technique VMAT [facility] Elapsed Days 41 [facility] Start Date 07/15/2025 [facility] Last Date 08/25/2025 [facility] Prescribed Number of Fractions 33 [facility] 08/25/2025 8:34 AM EDT Physician Radiation Oncology MD RADIATION ONCOLO GY ORDERABLES Final Result [facility] [address] [facility] [place] [address], [place] * Rad Onc Msq Treatment Summary (08/24/2025 11:35 AM EDT) [facility] Treatment Site Larynx [facility] Course Number 1 [facility] Prescribed Fractional Dose 200 cGray [facility] Prescribed Total Dose 6,600 cGray [facility] Actual Fractions Delivered 29 [facility] Prescription Pattern Comment Secondary PTV - 5940 cGy [facility] Actual Session Delivered Dose 200 cGray [facility] Actual Total Dose 5,800 cGray [facility] Prescribed Technique VMAT [facility] Elapsed Days 40 [facility] Start Date 07/15/2025 [facility] Last Date 08/24/2025 [facility] Prescribed Number of Fractions 33 [facility] 08/24/2025 11:3 5 AM EDT Physician Radiation Oncology MD RADIATION ONCOLO GY ORDERABLES Final Result [facility] [address] [facility] [place] [address], [place] * Rad Onc Msq Treatment Summary (08/21/2025 10:11 AM EDT) [facility] Treatment Site Larynx [facility] Course Number 1 [facility] Prescribed Fractional Dose 200 cGray [facility] Prescribed Total Dose 6,600 cGray [facility] Actual Fractions Delivered 28 [facility] Prescription Pattern Comment Secondary PTV - 5940 cGy [facility] Actual Session Delivered Dose 200 cGray [facility] Actual Total Dose 5,600 cGray [facility] Prescribed Technique VMAT [facility] Elapsed Days 37 [facility] Start Date 07/15/2025 [facility] Last Date 08/21/2025 [facility] Prescribed Number of Fractions 33 [facility] 08/21/2025 10:1 1 AM EDT us Physician Radiation Oncology MD RADIATION ONCOLO GY ORDERABLES Final Result Performing Organization Address City/[facility]/ZIP Co de Phone Number [facility] [address] [facility] [place] [address], [place] * Rad Onc Msq Treatment Summary (08/20/2025 8:27 AM EDT) [facility] Treatment Site Larynx [facility] Course Number 1 [facility] Prescribed Fractional Dose 200 cGray [facility] Prescribed Total Dose 6,600 cGray [facility] Actual Fractions Delivered 27 [facility] Prescription Pattern Comment Secondary PTV - 5940 cGy [facility] Actual Session Delivered Dose 200 cGray [facility] Actual Total Dose 5,400 cGray [facility] Prescribed Technique VMAT [facility] Elapsed Days 36 [facility] Start Date 07/15/2025 [facility] Last Date 08/20/2025 [facility] [facility] Prescribed Number of Fractions 33 [facility] 08/20/2025 8:27 AM EDT Physician Radiation Oncology MD RADIATION ONCOLO GY ORDERABLES Final Result [employer] [address] [facility] [place] [address], [place] * Rad Onc Msq Treatment Summary (08/19/2025 11:57 AM EDT) [facility] Treatment Site Larynx [facility] Course Number 1 [facility] Prescribed Fractional Dose 200 cGray [facility] Prescribed Total Dose 6,600 cGray [facility] Actual Fractions Delivered 26 [facility] Prescription Pattern Comment Secondary PTV - 5940 cGy [facility] Actual Session Delivered Dose 200 cGray [facility] Actual Total Dose 5,200 cGray [facility] Prescribed Technique VMAT [facility] Elapsed Days 35 [facility] Start Date 07/15/2025 [facility] Last Date 08/19/2025 [facility] Prescribed Number of Fractions 33 [facility] 08/19/2025 11:5 7 AM EDT Physician Radiation Oncology RADIATION ONCOLO GY ORDERABLES Final Result Performing Organization Address City/[facility]/ZIP Co de Phone Number [employer] [facility] [place] [facility] [address] [facility] [place] [address], [place] * Rad Onc Msq Treatment Summary (08/18/2025 11:56 AM EDT) [facility] Treatment Site Larynx [facility] Course Number 1 [facility] Prescribed Fractional Dose 200 cGray [facility] Prescribed Total Dose 6,600 cGray [facility] Actual Fractions Delivered 25 [facility] Prescription Pattern Comment Secondary PTV - 5940 cGy [facility] Actual Session Delivered Dose 200 cGray [facility] Actual Total Dose 5,000 cGray [facility] Prescribed Technique VMAT [facility] Elapsed Days 34 [facility] Start Date 07/15/2025 [facility] Last Date 08/18/2025 [facility] Prescribed Number of Fractions 33 [facility] 08/18/2025 11:5 6 AM EDT Physician Radiation Oncology MD RADIATION ONCOLO GY ORDERABLES Final Result [facility] [address] [facility] [place] [place] [address], [place] * Rad Onc Msq Treatment Summary (08/17/2025 11:17 AM EDT) Pathologist [facility] Treatment Site L[facility] Course Number 1 [facility] Prescribed Fractional Dose 200 cGray [facility] Prescribed Total Dose 6,600 cGray [facility] Actual Fractions Delivered 24 [employer] [facility] Prescription Pattern Comment Secondary PTV - 5940 cGy [facility] Actual Session Delivered Dose 200 cGray [facility] Actual Total Dose 4,800 cGray [facility] Prescribed Technique VMAT [facility] Elapsed Days 33 [facility] Start Date 07/15/2025 [facility] Last Date 08/17/2025 [facility] Prescribed Number of Fractions 33 [facility] 08/17/2025 11:1 7 AM EDT Physician Radiation Oncology MD RADIATION ONCOLO GY ORDERABLES Final Result [facility] [address] [facility] [place] [address], [place] * Rad Onc Msq Treatment Summary (08/14/2025 10:05 AM EDT) Treatment Site Larynx [facility] Course Number 1 [facility] Prescribed Fractional Dose 200 cGray [facility] Prescribed Total Dose 6,600 cGray [facility] Actual Fractions Delivered 23 [facility] Prescription Pattern Comment Secondary PTV - 5940 cGy [facility] Actual Session Delivered Dose 200 cGray [facility] Actual Total Dose 4,600 cGray [facility] Prescribed Technique VMAT [facility] Elapsed Days 30 [facility] Start Date 07/15/2025 [facility] Last Date 08/14/2025 [facility] Prescribed Number of Fractions 33 [facility] 08/14/2025 10:0 5 AM EDT Physician Radiation Oncology MD RADIATION ONCOLO GY ORDERABLES Final Result [facility] [address] [facility] [place] [address], [place] * Rad Onc Msq Treatment Summary (08/13/2025 11:02 AM EDT) Pathologist [facility] Treatment Site Larynx [facility] Course Number 1 [facility] Prescribed Fractional Dose 200 cGray [facility] Prescribed Total Dose 6,600 cGray [facility] Actual Fractions Delivered 22 [facility] Prescription Pattern Comment Secondary PTV - 5940 cGy [facility] Actual Session Delivered Dose 200 cGray [facility] Actual Total Dose 4,400 cGray [facility] Prescribed Technique VMAT [facility] Elapsed Days 29 [facility] Start Date 07/15/2025 [facility] Last Date 08/13/2025 [facility] Prescribed Number of Fractions 33 [facility] 08/13/2025 11:0 2 AM EDT us Physician Radiation Oncology RADIATION ONCOLO GY ORDERABLES Final Result [facility] [address] [facility] [place] [address], [place] * Rad Onc Msq Treatment Summary (08/12/2025 10:41 AM EDT) Pathologist [facility] Treatment Site Larynx [facility] Course Number 1 [facility] Prescribed Fractional Dose 200 cGray [facility] Prescribed Total Dose 6,600 cGray [facility] Actual Fractions Delivered 21 [facility] Prescription Pattern Comment Secondary PTV - 5940 cGy [facility] Actual Session Delivered Dose 200 cGray [facility] Actual Total Dose 4,200 cGray [facility] Prescribed Technique VMAT [facility] Elapsed Days 28 [facility] Start Date 07/15/2025 [facility] Last Date 08/12/2025 [facility] Prescribed Number of Fractions 33 [facility] 08/12/2025 10:4 1 AM EDT Physician Radiation Oncology MD RADIATION ONCOLO GY ORDERABLES Final Result Performing Organization Address City/[facility]/ZIP Co de Phone Number [facility] [address] [facility] [place] [place] [address], [place] * Rad Onc Msq Treatment Summary (08/11/2025 10:20 AM EDT) Treatment Site Larynx [facility] Course Number 1 [facility] Prescribed Fractional Dose 200 cGray [facility] Prescribed Total Dose 6,600 cGray [facility] Actual Fractions Delivered 20 [facility] Prescription Pattern Comment Secondary PTV - 5940 cGy [facility] Actual Session Delivered Dose 200 cGray [facility] Actual Total Dose 4,000 cGray [facility] Prescribed Technique VMAT [facility] Elapsed Days 27 [facility] Start Date 07/15/2025 [facility] Last Date 08/11/2025 [facility] Prescribed Number of Fractions 33 [facility] 08/11/2025 10:2 0 AM EDT Physician Radiation Oncology MD RADIATION ONCOLO GY ORDERABLES Final Result [facility] [address] [place] [address], [place] * Rad Onc Msq Treatment Summary (08/10/2025 11:29 AM EDT) [facility] Treatment Site Larynx [facility] Course Number 1 [facility] Prescribed Fractional Dose 200 cGray [facility] Prescribed Total Dose 6,600 cGray [facility] Actual Fractions Delivered 19 [facility] Prescription Pattern Comment Secondary PTV - 5940 cGy [facility] Actual Session Delivered Dose 200 cGray [facility] Actual Total Dose 3,800 cGray [facility] Prescribed Technique VMAT [facility] Elapsed Days 26 [facility] Start Date 07/15/2025 [facility] Last Date 08/10/2025 [facility] Prescribed Number of Fractions 33 [facility] 08/10/2025 11:2 9 AM EDT Physician Radiation Oncology MD RADIATION ONCOLO GY ORDERABLES Final Result [facility] [address] [facility] [place] [address], [place] * Rad Onc Msq Treatment Summary (08/07/2025 11:25 AM EDT) [facility] Treatment Site Larynx [facility] Course Number 1 [facility] Prescribed Fractional Dose 200 cGray [facility] Prescribed Total Dose 6,600 cGray [facility] Actual Fractions Delivered 18 [facility] Prescription Pattern Comment Secondary PTV - 5940 cGy [facility] Actual Session Delivered Dose 200 cGray [facility] Actual Total Dose 3,600 cGray [facility] Prescribed Technique VMAT [facility] Elapsed Days 23 [facility] Start Date 07/15/2025 [facility] Last Date 08/07/2025 [facility] Prescribed Number of Fractions 33 [facility] 08/07/2025 11:2 5 AM EDT Physician Radiation Oncology MD RADIATION ONCOLO GY ORDERABLES Final Result [facility] [address] [facility] [place] [address], [place] * Rad Onc Msq Treatment Summary (08/06/2025 12:48 PM EDT) [facility] Treatment Site Larynx [facility] Course Number 1 [facility] Prescribed Fractional Dose 200 cGray [facility] Prescribed Total Dose 6,600 cGray [facility] Actual Fractions Delivered 17 [facility] Prescription Pattern Comment Secondary PTV - 5940 cGy [facility] Actual Session Delivered Dose 200 cGray [facility] Actual Total Dose 3,400 cGray [facility] Prescribed Technique VMAT [facility] Elapsed Days 22 [facility] Start Date 07/15/2025 [facility] Last Date 08/06/2025 [facility] Prescribed Number of Fractions 33 [facility] 08/06/2025 12:4 8 PM EDT Physician Radiation Oncology MD RADIATION ONCOLO GY ORDERABLES Final Result Performing Organization Address City/[facility]/ZIP Co de Phone Number [facility] [address] [facility] [place] [address], [place] * Rad Onc Msq Treatment Summary (08/05/2025 11:44 AM EDT) [facility] Treatment Site Larynx [facility] Course Number 1 [facility] Prescribed Fractional Dose 200 cGray [facility] Prescribed Total Dose 6,600 cGray [facility] Actual Fractions Delivered 16 [facility] Prescription Pattern Comment Secondary PTV - 5940 cGy [facility] Actual Session Delivered Dose 200 cGray [facility] Actual Total Dose 3,200 cGray [facility] Prescribed Technique VMAT [facility] Elapsed Days 21 [facility] Start Date 07/15/2025 [facility] Last Date 08/05/2025 [facility] Prescribed Number of Fractions 33 [facility] 08/05/2025 11:4 4 AM EDT Physician Radiation Oncology MD RADIATION ONCOLO GY ORDERABLES Final Result Performing Organization Address City/[facility]/ZIP Co de Phone Number [facility] [address] [facility] [place] [address], [place] * Rad Onc Msq Treatment Summary (08/04/2025 11:46 AM EDT) Pathologist [facility] Treatment Site Larynx [facility] Course Number 1 [facility] Prescribed Fractional Dose 200 cGray [facility] Prescribed Total Dose 6,600 cGray [facility] Actual Fractions Delivered 15 [facility] Prescription Pattern Comment Secondary PTV - 5940 cGy [facility] Actual Session Delivered Dose 200 cGray [employer] [facility] [place] [facility] Actual Total Dose 3,000 cGray [facility] Prescribed Technique VMAT [facility] Elapsed Days 20 [facility] Start Date 07/15/2025 [facility] Last Date 08/04/2025 [facility] Prescribed Number of Fractions 33 [facility] 08/04/2025 11:4 6 AM EDT Physician Radiation Oncology MD RADIATION ONCOLO GY ORDERABLES Final Result Performing Organization Address City/[facility]/ZIP Co de Phone Number [facility] [address] [facility] [place] [address], [place] * Rad Onc Msq Treatment Summary (08/03/2025 11:25 AM EDT) Pathologist [facility] Treatment Site Larynx [facility] Course Number 1 [facility] Prescribed Fractional Dose 200 cGray [facility] Prescribed Total Dose 6,600 cGray [facility] Actual Fractions Delivered 14 [facility] Prescription Pattern Comment Secondary PTV - 5940 cGy [facility] Actual Session Delivered Dose 200 cGray [facility] Actual Total Dose 2,800 cGray [facility] Prescribed Technique VMAT [facility] Elapsed Days 19 [facility] Start Date 07/15/2025 [facility] Last Date 08/03/2025 [facility] Prescribed Number of Fractions 33 [facility] 08/03/2025 11:2 5 AM EDT Physician Radiation Oncology MD RADIATION ONCOLO GY ORDERABLES Final Result [facility] [address] [facility] [place] [address], [place] * Rad Onc Msq Treatment Summary (07/31/2025 11:55 AM EDT) [facility] Treatment Site Larynx [facility] Course Number 1 [facility] Prescribed Fractional Dose 200 cGray [facility] Prescribed Total Dose 6,600 cGray [facility] Actual Fractions Delivered 13 [facility] Prescription Pattern Comment Secondary PTV - 5940 cGy [facility] Actual Session Delivered Dose 200 cGray [facility] Actual Total Dose 2,600 cGray [facility] Prescribed Technique VMAT [facility] Elapsed Days 16 [facility] Start Date 07/15/2025 [facility] Last Date 07/31/2025 [facility] Prescribed Number of Fractions 33 [facility] 07/31/2025 11:5 5 AM EDT Physician Radiation Oncology MD RADIATION ONCOLO GY ORDERABLES Final Result [facility] [address] [facility] [place] [place] [address], [place] * Rad Onc Msq Treatment Summary (07/30/2025 11:54 AM EDT) Pathologist [facility] Treatment Site Larynx [facility] Course Number 1 [facility] Prescribed Fractional Dose 200 cGray [facility] Prescribed Total Dose 6,600 cGray [facility] Actual Fractions Delivered 12 [facility] Prescription Pattern Comment Secondary PTV - 5940 cGy [facility] Actual Session Delivered Dose 200 cGray [facility] Actual Total Dose 2,400 cGray [facility] Prescribed Technique VMAT [facility] Elapsed Days 15 [facility] Start Date 07/15/2025 [facility] Last Date 07/30/2025 [facility] Prescribed Number of Fractions 33 [facility] 07/30/2025 11:5 4 AM EDT Physician Radiation Oncology MD RADIATION ONCOLO GY ORDERABLES Final Result Performing Organization Address City/[facility]/ZIP Co de Phone Number [facility] [address] [facility] [place] [address], [place] * Rad Onc Msq Treatment Summary (07/29/2025 10:20 AM EDT) Pathologist [facility] Treatment Site Larynx [facility] Course Number 1 [facility] Prescribed Fractional Dose 200 cGray [facility] Prescribed Total Dose 6,600 cGray [facility] Actual Fractions Delivered 11 [facility] Prescription Pattern Comment Secondary PTV - 5940 cGy [facility] Actual Session Delivered Dose 200 cGray [facility] Actual Total Dose 2,200 cGray [facility] Prescribed Technique VMAT [facility] Elapsed Days 14 [facility] Start Date 07/15/2025 [facility] Last Date 07/29/2025 [facility] Prescribed Number of Fractions 33 [facility] 07/29/2025 10:2 0 AM EDT Physician Radiation Oncology MD RADIATION ONCOLO GY ORDERABLES Final Result [facility] [address] [facility] [place] [address], [place] * Rad Onc Msq Treatment Summary (07/28/2025 11:55 AM EDT) Treatment Site Larynx [facility] Course Number 1 [facility] Prescribed Fractional Dose 200 cGray [facility] Prescribed Total Dose 6,600 cGray [facility] Actual Fractions Delivered 10 [facility] Prescription Pattern Comment Secondary PTV - 5940 cGy [facility] Actual Session Delivered Dose 200 cGray [facility] Actual Total Dose 2,000 cGray [facility] Prescribed Technique VMAT [facility] Elapsed Days 13 [facility] Start Date 07/15/2025 [facility] Last Date 07/28/2025 [facility] Prescribed Number of Fractions 33 [facility] 07/28/2025 11:5 5 AM EDT us Physician Radiation Oncology MD RADIATION ONCOLO GY ORDERABLES Final Result Performing Organization Address City/State/[facility] Co de Phone Number [employer] [facility] [place] [facility] [facility] [address] [facility] [place] [address], from Last 3 Months Insurance [place] [id number] [facility] MEDICARE PART A & B [facility] Advance Directives For more information, please contact: [phone] Documents on File Type Date Recorded Patient Custodian Expl anation Advance Directives 10/17/2022 9:28 AM Advance Directives 04/18/2022 8:16 AM Advance Directives 09/13/2021 8:06 AM * Full Code (Latest Code Status on File) Date Activated Date Inactivated Comments 02/14/2021 2:38 PM 02/15/2021 4:01 PM Care Teams Cnc Wood Lathe Operator Relationship Specialty Start Date End Date Lizzy Kendrick MD [address] [place] [id number] PCP - General Primary Care 10/30/18
--- OUTSIDE RECORDS SUMMARY | 2025-10-27 14:30 | XMS_ITS | Encounter Summary ---
Author Organization [facility]ly [facility] Address [address] [place] [address] Care Team Providers Care Materials Analyst Name Role Phone Lizzy Kendrick MD Primary Care Provider Reason for Referral * MRI/CAT/PET Scan (Routine) - Closed Specialty Diagnoses / Procedures Referred By Helga smith Referred To Contact Radiology Diagnoses Malignant neoplasm of glottis (HCC) Procedures CT soft tissue neck W iv contrast Orestes Gomez MD [address] [place], [place] [address] [address] Phone: tel: fax: Referral ID Status Reason Start Date Expiration Date Visits Re quested Visits Authorized [id number] Closed 06/26/2025 07/29/2026 1 1 * MRI/CAT/PET Scan (Routine) - Closed Specialty Diagnoses / Procedures Referred By Helga smith Referred To Contact Radiology Diagnoses Malignant neoplasm of glottis (HCC) Procedures PET CT FDG skull to thigh Orestes Gomez MD [address] [place], [place] [address] [address] Phone: tel: fax: Referral ID Status Reason Start Date Expiration Date Visits Re quested Visits Authorized [id number] Closed 06/24/2025 07/29/2026 1 1 Encounter Details Date Type Department Care Team (Late st Contact Info) Description 06/24/2025 Orders Only [address] [address] [facility]es [facility] [place] [phone] Malignant neoplasm of glottis (HCC) (Primary Dx) Social History Tobacco Use Types Packs/Day Years Used Date Smoking Tobacco: Former Cigarettes 0 Q uit: 02/04/1981 Smokeless Tobacco: Never Alcohol [...] suspected to have Coronavirus/COVID-19? No / Unsure 06/15/2025 10:03 AM EDT documented as of this encounter Plan of Treatment Upcoming Encounters Date Type Department Care Team (Late st Contact Info) Description 11/02/2025 8:30 AM EST Appointment [address] [address] [facility]restes Gomez [facility] [address] [facility] [place] [id number] 12/07/2025 9:00 AM EST Procedure visit [facility] Department of Otolaryngology [address] [place] [phone] Enrique Taylor MD [address] [facility] [phone] documented as of this encounter Results * CT soft tissue neck W iv contrast (07/03/2025 9:12 AM EDT) Anatomical Region Laterality Modality Neck, Head and Neck Computed Phil ography 07/13/2025 8:35 AM EDT Impressions 07/13/2025 9:42 AM EDT Minimal thickening of the left vocal fold and infraglottic trachea. Similar findings noted on CT dated 09/23/2024. There is no cervical adenopathy. There is a stable 5 mm nodule within the right upper lung, likely due to scarring. Up-to-date CT equipment and radiation dose reduction techniques were employed. CTDI Vol: 7.6 mGy. DLP: 229 mGy-cm. Reminder to Patients and Legally Authorized Representatives: Language in this report is designed for medical communication with other treating physicians and clinical practitioners. Please speak with your provider(s) about any questions or concerns related to the content of this report. 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 COMPARISON: 09/23/2024 CT, PET CT 07/01/2025 FINDINGS: There is mild focal thickening of the left vocal fold and supraglottic trachea on the left. This minimal asymmetry involving the posterior aspect of the right infraglottic trachea. These findings are without definite change from the CT dated 09/23/2024. There is asymmetry of the left aryepiglottic fold and mild asymmetry of the piriform sinus, of doubtful significance. There is no cervical adenopathy. There is no abnormality of the nasopharynx, oral cavity, or oropharynx. There is a 5 mm nodule within the right lobe of the thyroid gland. The thyroid gland is otherwise unremarkable. The parotid glands and submandibular glands appear normal. There are emphysematous changes in the upper lungs. There is a stable 5 mm nodule within the posterior aspect of the right upper lobe (series 4 image 440) consistent with scarring. There is stable pleural and parenchymal scarring in the lung apices. There are postoperative findings related to the left mastoidectomy. The paranasal sinuses are clear. The orbits are normal. No intracranial abnormality noted. There is mild cervical spondylosis. 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 COMPARISON: 09/23/2024 CT, PET CT 07/01/2025 FINDINGS: There is mild focal thickening of the left vocal fold and supraglottictrachea on the left. This minimal asymmetry involving the posterior aspectof the right infraglottic trachea. These findings are without definitechange from the CT dated 09/23/2024. There is asymmetry of the left aryepiglottic fold and mild asymmetry ofthe piriform sinus, of doubtful significance. There is no cervical adenopathy. There is no abnormality of the nasopharynx, oral cavity, or oropharynx. There is a 5 mm nodule within the right lobe of the thyroid gland. Thethyroid gland is otherwise unremarkable. The parotid glands andsubmandibular glands appear normal. There are emphysematous changes in the upper lungs. There is a stable 5 mmnodule within the posterior aspect of the right upper lobe (series 4 [id number]) consistent with scarring. There is stable pleural and parenchymalscarring in the lung apices. There are postoperative findings related to the left mastoidectomy. Theparanasal sinuses are clear. The orbits are normal. No intracranialabnormality noted. There is mild cervical spondylosis. IMPRESSION: Minimal thickening of the left vocal fold and infraglottic trachea.Similar findings noted on CT dated 09/23/2024. There is no cervical adenopathy. There is a stable 5 mm nodule within the right upper lung, likely due toscarring. Up-to-date CT equipment and radiation dose reduction techniques wereemployed. CTDI Vol: 7.6 mGy. DLP: 229 mGy-cm. Reminder to Patients and Legally Authorized Representatives: Language in this report is designed for medical communication with othertreating physicians and clinical practitioners. Please speak with your provider(s) about any questions or concernsrelated to the content of this report. Raoul Marquez MD AF^0 us Orestes Gomez MD IMG CT PROCEDURES Final Resu lt * PET CT FDG skull to thigh (07/01/2025 12:31 PM EDT) Anatomical Region Laterality Modality Body Positron Emissio n Tomography (PET) 07/01/2025 2:33 PM EDT Impressions 07/01/2025 3:02 PM EDT No definite evidence for FDG avid malignancy. Symmetric increased vocal cord uptake is unlikely to represent malignancy. Recommend correlation with laryngoscopy. Up-to-date CT equipment and radiation dose reduction techniques were employed. CTDI Vol: 5.4 mGy. DLP: 493 mGy-cm. Reminder to Patients and Legally Authorized Representatives: Language in this report is designed for medical communication with other treating physicians and clinical practitioners. Please speak with your provider(s) about any questions or concerns related to the content of this report. Primitivo Gerber MD AF^0 Narrative 07/01/2025 3:02 PM EDT Fluorine-18 FDG-PET/CT scan. 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 TECHNIQUE: Approximately 47 minutes following intravenous administration of 11.9 mCi of Fluorine-18 FDG, a PET scan was performed from the top of the skull to the mid thighs. Transverse image reconstruction using an iterative algorithm was performed with reoriented tomograms displayed in the transaxial, coronal, and sagittal planes. Low dose noncontrast CT scan was performed primarily for attenuation correction and localization. Finger stick serum glucose 101 mg/dl. COMPARISON: CT chest 04/22/2025. No prior PET/CT scan available. FINDINGS: Head and Neck: No foci of abnormally increased radiotracer uptake or pathologically enlarged lymph nodes in the head and neck. Symmetric increased vocal cord uptake is present, likely physiologic or inflammatory. Thorax: No suspicious uptake. Tiny pulmonary nodules are present, too small to characterize metabolically. No pleural or pericardial effusions. Moderate coronary artery calcifications. Abdomen/Pelvis: No suspicious uptake. Excreted tracer activity is noted in the kidneys and the bladder. Hepatic cirrhosis. Layering cholelithiasis. Moderate vascular calcification. 3.2 cm simple cyst within the RIGHT hemipelvis is FDG negative. Colonic diverticulosis. Musculoskeletal: No suspicious osseus uptake. Procedure Note Primitivo Gerber MD - 07/01/2025 Fluorine-18 FDG-PET/CT scan. 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 Laryngeal cancer,staging C32.0 Malignant neoplasm of glottis Subsequent treatment management. TECHNIQUE: Approximately 47 minutes following intravenous administrationof 11.9 mCi of Fluorine-18 FDG, a PET scan was performed from the top ofthe skull to the mid thighs. Transverse image reconstruction using aniterative algorithm was performed with reoriented tomograms displayed inthe transaxial, coronal, and sagittal planes. Low dose noncontrast CT scanwas performed primarily for attenuation correction and localization.Finger stick serum glucose 101 mg/dl. COMPARISON: CT chest 04/22/2025. No prior PET/CT scan available. FINDINGS: Head and Neck: No foci of abnormally increased radiotracer uptake or pathologicallyenlarged lymph nodes in the head and neck. Symmetric increased vocal corduptake is present, likely physiologic or inflammatory. Thorax: No suspicious uptake. Tiny pulmonary nodules are present, too small to characterizemetabolically. No pleural or pericardial effusions. Moderate coronaryartery calcifications. Abdomen/Pelvis: No suspicious uptake. Excreted tracer activity is noted in the kidneys andthe bladder. Hepatic cirrhosis. Layering cholelithiasis. Moderate vascularcalcification. 3.2 cm simple cyst within the RIGHT hemipelvis is FDGnegative. Colonic diverticulosis. Musculoskeletal: No suspicious osseus uptake. IMPRESSION: No definite evidence for FDG avid malignancy. Symmetric increased vocalcord uptake is unlikely to represent malignancy. Recommend correlationwith laryngoscopy. Up-to-date CT equipment and radiation dose reduction techniques wereemployed. CTDI Vol: 5.4 mGy. DLP: 493 mGy-cm. Reminder to Patients and Legally Authorized Representatives: Language in this report is designed for medical communication with othertreating physicians and clinical practitioners. Please speak with your provider(s) about any questions or concernsrelated to the content of this report. Primitivo Gerber MD AF^0 us Orestes Gomez MD IMG PET PROCEDURES Final Res ult documented in this encounter Visit Diagnoses Diagnosis Malignant neoplasm of glottis (HCC)- Primary Malignant neoplasm of glottis Malignant neoplasm of glottis (HCC) Malignant neoplasm of glottis Malignant neoplasm of glottis (HCC) Malignant neoplasm of glottis documented in this encounter Care Teams Materials Analyst Relationship Specialty Start Date End Date Lizzy Kendrick MD [address] [place] [address] PCP - General Primary Care 10/30/18 documented as of this encounter
--- OUTSIDE RECORDS SUMMARY | 2025-10-27 14:30 | XMS_ITS | Clinical Summary ---
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 Videostroboscopy [...] follow her up in 4-6 weeks. Immunizations Immunization Administration Dates Next Due [facility] SARS-COV-2 01/19/2021 Pneumococcal Conjugate 13-Valent 06/29/2016 Family [...] Colorectal Cancer Screening: Sigmoidoscopy 1998 Pneumococcal Vaccine: 50+ Ye ars (2 of 2 - PPSV23, PCV20, or PCV21) 08/24/2016 06/29/2016 Influenza Vaccine (#1) 2025 Pneumococcal Vaccine: Peds ( 0 to 5 Years) and At-Risk Patients (6 to 49 Years) Discontinued 06/29/2016 Hepatitis B Vaccine Aged Out No longe r eligible based on patient's age to complete this topic Insurance Medicare Medicaid [place] Medicare [place] Care Teams Die Keeper Relationship Specialty Start Date End Date Lizzy Kendrick MD [address] [place] [phone] PCP - General Internal Medicine 07/07/21
--- OUTSIDE RECORDS SUMMARY | 2025-10-27 14:30 | XMS_ITS ---
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 Normal 12/15/2024 [facility] ISTAT SAMPLE TYPE unknown Normal 09/23/2024 C TUS POCT CREATININE 1.0 mg/dL Normal 09/23/2024 0.6 - 1.2 [facility] History of Medication Use Medication Directions Dispensed Refills Start Date End Date Stat oxyCODONE (ROXICODONE) 5 mg immediate release tablet Take 1 tablet (5 mg total) by mouth every 4 (four) hours as needed for moderate pain (4-7). Max Daily Amount: 30 mg 08/06/2025 active LORazepam (Ativan) 0.5 mg tablet Take 1 tablet (0.5 mg total) by mouth 2 (two) times a day as needed for anxiety. 07/28/2025 active lidocaine HCL (lidocaine) 2 % solution Take 10 mL by mouth 6 (xis) times a day as needed (sore throat). Mix the lidocaine with Maalox or Mylanta 50%/50% and use the solution as directed 07/20/2025 active lidocaine-oxymetazol ine 2%-0.025% nasal solution 1 application 04/28/2025 active doxycycline (Vibramycin) 100 mg capsule Take 1 capsule (100 mg total) by mouth in the morning and 1 capsule (100 mg total) before bedtime. Do all this for 10 days. 07/15/2024 10/13/2024 active fluticasone propionate (FLONASE) 50 mcg/actuation nasal spray Administer 2 sprays into each nostril in the morning. 01/29/2024 04/29/2024 active omeprazole (PriLOSEC) 40 mg capsule TAKE ONE CAPSULE DAILY, 30-60 MINUTES BEFORE A MEAL, ON AN EMPTY STOMACH. 05/27/2021 03/26/2024 active amLODIPine (NORVASC) 10 mg tablet Take 10 mg by mouth daily. active cholecalciferol, vitamin D3, 50 mcg (2,000 unit) capsule Take 1 capsule by mouth daily. active Allergies Allergen Reaction Severity Comment Documented Date Source Statu s PENICILLIN V OTHER (SEE COMMENTS) 12/23/2020 [facility] active Problems Problem Status Onset Date Problem Type Date of Resoluti on Source Dysphonia active EncounterDiagnosisAct [facility] Verrucous carcinoma (HCC) active EncounterDiagnosisAct [facility] Immunizations Vaccine Date Source Lot Number Status COVID-19 watAgame VACCINE 01/19/2021 [facility] completed COVID-19 watAgame VACCINE 01/19/2021 [facility] [id number] completed Encounters Encounter Type Encounter Reason Primary Diagnosis Location Date Ambulatory Malignant (primary) neoplasm, unspecifie Malignant (primary) neoplasm, unspecified [facility] 10/05/2025 Ambulatory Follow-up Follow-up [facility] 09/14/2025 Ambulatory 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 [facility] 08/28/2025 Ambulatory Follow-up Follow-up [facility] 08/27/2025 Ambulatory 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 [facility] 08/27/2025 Ambulatory 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 [facility] 08/26/2025 Ambulatory 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 [facility] 08/25/2025 Ambulatory 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 [facility] 08/24/2025 Ambulatory 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 [facility] 08/21/2025 Ambulatory 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 [facility] 08/20/2025 Ambulatory 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 [facility] 08/19/2025 Ambulatory 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 [facility] 08/18/2025 Ambulatory Neoplasm related lisa n (acute) (chronic) Neoplasm related pain (acute) (chronic) [facility] 08/17/2025 Ambulatory 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 [facility] 08/17/2025 Ambulatory 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 [facility] 08/14/2025 Ambulatory 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 [facility] 08/13/2025 Ambulatory 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 [facility] 08/12/2025 Ambulatory 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 [facility] 08/11/2025 Ambulatory 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 [facility] 08/10/2025 Ambulatory 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 [facility] 08/07/2025 Ambulatory Malignant (primary) neoplasm, unspecifie Malignant (primary) neoplasm, unspecified [facility] 08/06/2025 Ambulatory 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 [facility] 08/05/2025 Ambulatory 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 [facility] 08/04/2025 Ambulatory 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 [facility] 08/03/2025 Ambulatory 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 [facility] 07/31/2025 Ambulatory 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 [facility] 07/30/2025 Ambulatory 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 [facility] 07/29/2025 Ambulatory 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 [facility] 07/28/2025 Ambulatory 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 [facility] 07/27/2025 Ambulatory 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 [facility] 07/24/2025 Ambulatory 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 [facility] 07/23/2025 Ambulatory 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 [facility] 07/22/2025 Ambulatory 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 [facility] 07/21/2025 Ambulatory 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 [facility] 07/20/2025 Ambulatory 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 [facility] 07/17/2025 Ambulatory 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 [facility] 07/16/2025 Ambulatory 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 [facility] 07/15/2025 Ambulatory [facility] 07/06/2025 Ambulatory 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 [facility] 07/03/2025 Ambulatory Other diseases of larynx Other diseases of larynx [facility] 07/03/2025 Ambulatory 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 [facility] 07/01/2025 Ambulatory Malignant (primary) neoplasm, unspecifie Malignant (primary) neoplasm, unspecified [facility] 04/28/2025 Ambulatory Malignant (primary) neoplasm, unspecifie Malignant (primary) neoplasm, unspecified [facility] 04/22/2025 Ambulatory Malignant (primary) neoplasm, unspecifie Malignant (primary) neoplasm, unspecified [facility] 04/17/2025 Ambulatory Malignant (primary) neoplasm, unspecifie Malignant (primary) neoplasm, unspecified [facility] 03/10/2025 Ambulatory Malignant (primary) neoplasm, unspecifie Malignant (primary) neoplasm, unspecified [facility] 12/30/2024 Ambulatory Dysphonia Dysphonia [facility] 11/04/2024 Ambulatory Dysphonia Dysphonia [facility] 10/02/2024 Ambulatory Other diseases of larynx Other diseases of larynx [facility] 09/23/2024 Ambulatory Dysphonia Dysphonia [facility] 08/26/2024 Ambulatory Dysphonia Dysphonia [facility] 07/15/2024 Ambulatory Dysphonia Dysphonia [facility] 04/10/2024 Ambulatory Malignant (primary) neoplasm, unspecifie Malignant (primary) neoplasm, unspecified [facility] 01/29/2024 Ambulatory Other diseases of larynx Other diseases of larynx [facility] 11/27/2023 Ambulatory Other diseases of larynx Other diseases of larynx [facility] 09/14/2023 Ambulatory Other diseases of larynx Other diseases of larynx [facility] 06/14/2023 Ambulatory Other diseases o f larynx [facility] 03/22/2023 Ambulatory Other diseases o f larynx [facility] 12/19/2022 Ambulatory Other diseases o f larynx [facility] 09/01/2022 Ambulatory Other diseases o f larynx [facility] 06/23/2022 Ambulatory Other diseases o f larynx [facility] 05/02/2022 Ambulatory Other diseases o f larynx [facility] 04/15/2022 Ambulatory Other diseases o f larynx [facility] 03/09/2022 Ambulatory Other diseases o f larynx [facility] 12/08/2021 Ambulatory Malignant (prima ry) neoplasm, unspecified [facility] 09/29/2021 Ambulatory Malignant (prima ry) neoplasm, unspecified [facility] 09/09/2021 Ambulatory Malignant (prima ry) neoplasm, unspecified [facility] 09/01/2021 Care Team Organization Name Specialty Phone Email Start Date End Da te [facility] CANDACE HURST Primary Care 09/01/2022 [facility] CANDACE HURST Primary Care 09/12/2021 06/23/2022
--- OUTSIDE RECORDS SUMMARY | 2025-10-27 14:30 | XMS_ITS ---
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 [...] as chest congestion which is available at [facility]. Patient should take 400 to [...] Gourmet which would be available online on [employer].I recommend the patient try the alginate containing product Reflux Gourmet which is available online on [employer]. Patient can take a teaspoon of this [...] follow her up in 4-6 weeks. Current Treatment and Therapy Plans No current plan information found. Past Treatment and Therapy Plans No past plan information found. Current Radiation Episodes * Radiation TherapyOverview* First Treatment Date Latest Treatment Date Treatment Site Technique Goal Episode Provider 07/15/2025 08/28/2025 Orestes Gomez MD * Linked Problems CancerDisease of larynx Treatment Courses* Course 1 07/15/2025 - 08/28/2025 Treatment Sites Treatment Period Fraction Dose Fractions Total Dose Larynx 07/15/2025 - 08/28/2025 200 / 200 cGy 33 / 33 6,600 / 6,600 cGy Lifetime Dose Tracking * Chemical Lifetime Dose Automatic Entry Manual Entr y Radiation (DLP) 1,019 mGy-cm 1,019 mGy-cm 0 mGy-cm CTDIvol min 22.9 mGy 22.9 mGy 0 mGy CTDIvol max 22.9 mGy 22.9 mGy 0 mGy [id number] 11.9 mSv 11.9 mSv 0 mSv
== END 2025-10-27 11:27 | disposition home or self-care (01) ==
LOC: HO.HKAS 10:46
PROVIDERS: PCP Internal Medicine; Visit Provider Internal Medicine Nephrology
DX: I12.9 Hypertensive chronic kidney disease with stage 1 through stage 4 chronic kidney disease, or unspecified chronic kidney disease (principal); N18.2 Chronic kidney disease, stage 2 (mild)
CPT/HCPCS: 99214

== ENCOUNTER → 2025-10-27 10:46 | Outpatient (BNVA) | payer MEDICARE, MEDICAID, SELFPAY | PROVIDERS: PCP Internal Medicine; Visit Provider Internal Medicine Nephrology | DX: I12.9 Hypertensive chronic kidney disease with stage 1 through stage 4 chronic kidney disease, or unspecified chronic kidney disease (principal); N18.2 Chronic kidney disease, stage 2 (mild); J38.7 Other diseases of larynx | CPT/HCPCS: 99212 ==